=== PATIENT | male | born 1955 | race American Indian/Alaskan Native ===

== ENCOUNTER 2018-01-09 16:56 | Inpatient (IN) | payer OTHER ==
--- NOTE | 2018-01-09 17:22 | Emergency Department Report ---
ED Neuro Deficit HPI - General Chief Complaint: Neuro Symptoms/Deficit Stated Complaint: POSS STROKE Time Seen by Provider: 01/09/18 17:18 Source: patient Mode of arrival: Ambulatory Limitations: No Limitations - History of Present Illness Initial Comments: This is a 62-year-old male with a past medical history significant for previous CVA who was found by his family today in the bathroom with altered mental status. Family states that since Monday which was roughly 2 days ago, the patient has been "acting differently". Family states that he seems to be sleeping more and nodding off more. The family admits that he drinks alcohol daily flavoring hard liquor and beer. He is also a smoker for many years. EMS arrived on scene and suspected left sided upper extremity and lower extremity weakness. The says that his speech seems to be impeded as well. The patient is oriented to place and year but not the month or time. He is oriented to self and he is able to give his own history. No loss of bowel or bladder function noted. -: Gradual, days(s) (2) Location: speech, left arm, left leg Presenting Symptoms: Present: Weak/Paralyzed One Side (left) History of same: Yes Place: home Severity: moderate Quality: weak Improves With: none Worsens With: none Context: gradual onset Associated Symptoms: confusion, weakness. denies: chest pain, cough, diaphoresis, fever/chills, headaches, loss of appetite, nausea/vomiting, shortness of breath - Related Data Allergies/Adverse Reactions: Allergies Allergy/AdvReac Type Severity Reaction Status Date / Time shellfish derived Allergy Hives Verified 01/09/18 17:04 ED Review of Systems ROS: Stated complaint: POSS STROKE Other details as noted in HPI Comment: All other systems reviewed and negative Constitutional: see HPI Eyes: as per HPI ENT: as per HPI Respiratory: see HPI Cardiovascular: as per HPI Endocrine: see HPI Gastrointestinal: as per HPI. denies: abdominal pain, nausea, vomiting Genitourinary: as per HPI Musculoskeletal: as per HPI Skin: as per HPI Neurological: as per HPI Psychiatric: as per HPI Hematological/Lymphatic: as per HPI ED Neuro Physical Exam - General Limitations: No Limitations General appearance: alert, in no apparent distress, appears intoxicated Suspected Stroke: No - Head Head exam: Present: atraumatic - Eye Eye exam: Present: normal appearance, PERRL, EOMI - ENT ENT exam: Present: normal exam - Neck Neck exam: Present: normal inspection - Respiratory Respiratory exam: Present: normal lung sounds bilaterally. Absent: respiratory distress, wheezes, rales, rhonchi - Cardiovascular Cardiovascular Exam: Present: regular rate, normal rhythm, normal heart sounds - GI/Abdominal GI/Abdominal exam: Present: soft, normal bowel sounds. Absent: diminished bowel sounds - Extremities Exam Extremities exam: Present: normal inspection, full ROM (generalized weakness in all extremities), normal capillary refill - Back Exam Back exam: Present: normal inspection - Neurological Exam Neurological exam: Present: alert, CN II-XII intact. Absent: oriented X3 - Skin Skin exam: Present: warm, dry, intact, normal color ED Course Vital Signs 01/09/18 01/09/18 01/09/18 17:02 17:25 17:31 Temperature 98.6 F Pulse Rate 93 H 77 60 Respiratory 12 13 Rate Blood Pressure 197/86 O2 Sat by Pulse 97 88 93 Oximetry 01/09/18 01/09/18 01/09/18 17:40 17:45 18:01 Temperature Pulse Rate 76 77 85 Respiratory 18 12 13 Rate Blood Pressure O2 Sat by Pulse 99 98 97 Oximetry 01/09/18 01/09/18 01/09/18 18:15 18:31 18:45 Temperature Pulse Rate 76 71 67 Respiratory 8 L 13 10 L Rate Blood Pressure O2 Sat by Pulse 95 98 99 Oximetry 01/09/18 01/09/18 01/09/18 19:01 19:15 19:31 Temperature Pulse Rate 68 102 H 82 Respiratory 11 L 11 L 7 L Rate Blood Pressure O2 Sat by Pulse 99 98 97 Oximetry 01/09/18 01/09/18 01/09/18 19:45 20:01 20:15 Temperature Pulse Rate 71 89 93 H Respiratory 6 L 16 17 Rate Blood Pressure 212/107 O2 Sat by Pulse 98 97 93 Oximetry - Reevaluation(s) Reevaluation #1: 01/09/18 21:55 The patient told his that he took some ecstasy. He also has been drinking. It could very well be that the patient is suffering from substance use disorder acutely. At this time there is no evidence of a CVA. I discussed the case with hospitalist. We will go ahead and admit the patient. - Lab Data Result diagrams: 01/09/18 17:20 01/09/18 17:20 Lab Results 01/09/18 01/09/18 01/09/18 Range/Units 17:05 17:20 17:20 WBC 10.4 (4.5-11.0) K/mm3 RBC 4.31 (3.65-5.03) M/mm3 Hgb 13.4 (11.8-15.2) gm/dl Hct 38.9 (35.5-45.6) % MCV 91 (84-94) fl MCH 31 (28-32) pg MCHC 34 (32-34) % RDW 14.3 (13.2-15.2) % Plt Count 254 (140-440) K/mm3 Lymph % (Auto) 11.0 L (13.4-35.0) % [place] % (Auto) 6.6 (0.0-7.3) % Eos % (Auto) 0.7 (0.0-4.3) % Baso % (Auto) 0.8 (0.0-1.8) % Lymph # 1.1 L (1.2-5.4) K/mm3 [place] # 0.7 (0.0-0.8) K/mm3 Eos # 0.1 (0.0-0.4) K/mm3 Baso # 0.1 (0.0-0.1) K/mm3 Seg Neutrophils % 80.9 H (40.0-70.0) % Seg Neutrophils # 8.4 H (1.8-7.7) K/mm3 PT 12.9 (12.2-14.9) Sec. INR 0.93 (0.87-1.13) APTT 28.9 (24.2-36.6) Sec. Thrombin Time (15.1-19.6) Sec. Sodium (137-145) mmol/L Potassium (3.6-5.0) mmol/L Chloride (98-107) mmol/L Carbon Dioxide (22-30) mmol/L Anion Gap mmol/L BUN (9-20) mg/dL Creatinine (0.8-1.5) mg/dL Estimated GFR ml/min BUN/Creatinine Ratio % Glucose (75-100) mg/dL POC Glucose 118 H (70-105) Calcium (8.4-10.2) mg/dL Total Bilirubin (0.1-1.2) mg/dL Direct Bilirubin (0-0.2) mg/dL Indirect Bilirubin mg/dL AST (5-40) units/L ALT (7-56) units/L Alkaline Phosphatase (35-129) units/L Troponin T (0.00-0.029) ng/mL Total Protein (6.3-8.2) g/dL Albumin (3.9-5) g/dL Albumin/Globulin Ratio % Plasma/Serum Alcohol (0-0.07) % 01/09/18 01/09/18 01/09/18 Range/Units 17:20 17:20 17:28 WBC (4.5-11.0) K/mm3 RBC (3.65-5.03) M/mm3 Hgb (11.8-15.2) gm/dl Hct (35.5-45.6) % MCV (84-94) fl MCH (28-32) pg MCHC (32-34) % RDW (13.2-15.2) % Plt Count (140-440) K/mm3 Lymph % (Auto) (13.4-35.0) % [place] % (Auto) (0.0-7.3) % Eos % (Auto) (0.0-4.3) % Baso % (Auto) (0.0-1.8) % Lymph # (1.2-5.4) K/mm3 [place] # (0.0-0.8) K/mm3 Eos # (0.0-0.4) K/mm3 Baso # (0.0-0.1) K/mm3 Seg Neutrophils % (40.0-70.0) % Seg Neutrophils # (1.8-7.7) K/mm3 PT (12.2-14.9) Sec. INR (0.87-1.13) APTT (24.2-36.6) Sec. Thrombin Time 15.1 (15.1-19.6) Sec. Sodium 138 (137-145) mmol/L Potassium 3.2 L (3.6-5.0) mmol/L Chloride 96.1 L (98-107) mmol/L Carbon Dioxide 28 (22-30) mmol/L Anion Gap 17 mmol/L BUN 20 (9-20) mg/dL Creatinine 1.2 (0.8-1.5) mg/dL Estimated GFR > 60 ml/min BUN/Creatinine Ratio 17 % Glucose 141 H (75-100) mg/dL POC Glucose (70-105) Calcium 9.2 (8.4-10.2) mg/dL Total Bilirubin 1.00 (0.1-1.2) mg/dL Direct Bilirubin 0.3 H (0-0.2) mg/dL Indirect Bilirubin 0.7 mg/dL AST 95 H (5-40) units/L ALT 59 H (7-56) units/L Alkaline Phosphatase 91 (35-129) units/L Troponin T < 0.010 (0.00-0.029) ng/mL Total Protein 7.7 (6.3-8.2) g/dL Albumin 4.1 (3.9-5) g/dL Albumin/Globulin Ratio 1.1 % Plasma/Serum Alcohol (0-0.07) % 05/15/18 Range/Units 17:40 WBC (4.5-11.0) K/mm3 RBC (3.65-5.03) M/mm3 Hgb (11.8-15.2) gm/dl Hct (35.5-45.6) % MCV (84-94) fl MCH (28-32) pg MCHC (32-34) % RDW (13.2-15.2) % Plt Count (140-440) K/mm3 Lymph % (Auto) (13.4-35.0) % [place] % (Auto) (0.0-7.3) % Eos % (Auto) (0.0-4.3) % Baso % (Auto) (0.0-1.8) % Lymph # (1.2-5.4) K/mm3 [place] # (0.0-0.8) K/mm3 Eos # (0.0-0.4) K/mm3 Baso # (0.0-0.1) K/mm3 Seg Neutrophils % (40.0-70.0) % Seg Neutrophils # (1.8-7.7) K/mm3 PT (12.2-14.9) Sec. INR (0.87-1.13) APTT (24.2-36.6) Sec. Thrombin Time (15.1-19.6) Sec. Sodium (137-145) mmol/L Potassium (3.6-5.0) mmol/L Chloride (98-107) mmol/L Carbon Dioxide (22-30) mmol/L Anion Gap mmol/L BUN (9-20) mg/dL Creatinine (0.8-1.5) mg/dL Estimated GFR ml/min BUN/Creatinine Ratio % Glucose (75-100) mg/dL POC Glucose (70-105) Calcium (8.4-10.2) mg/dL Total Bilirubin (0.1-1.2) mg/dL Direct Bilirubin (0-0.2) mg/dL Indirect Bilirubin mg/dL AST (5-40) units/L ALT (7-56) units/L Alkaline Phosphatase (35-129) units/L Troponin T (0.00-0.029) ng/mL Total Protein (6.3-8.2) g/dL Albumin (3.9-5) g/dL Albumin/Globulin Ratio % Plasma/Serum Alcohol < 0.01 (0-0.07) % Critical care attestation.: If time is entered above; I have spent that time in minutes in the direct care of this critically ill patient, excluding procedure time. ED Disposition Clinical Impression: Polysubstance abuse Altered mental status Qualifiers: Altered mental status type: unspecified Qualified Code(s): R41.82 - Altered mental status, unspecified Disposition: OP ADMIT IP TO THIS HOSP Is pt being admited?: Yes Does the pt Need Aspirin: No Condition: Stable
[2018-01-09 17:33] LABS: Basophils # (Auto) 0.1 K/mm3 (0.0-0.1); Basophils % (Auto) 0.8 % (0.0-1.8); Eosinophils # (Auto) 0.1 K/mm3 (0.0-0.4); Eosinophils % (Auto) 0.7 % (0.0-4.3); Hematocrit 38.9 % (35.5-45.6); Hemoglobin 13.4 gm/dl (11.8-15.2); Lymphocytes # (Auto) 1.1 K/mm3 (1.2-5.4); Mean Corpuscular HGB Conc 34 % (32-34); Mean Corpuscular Hemoglobin 31 pg (28-32); Mean Corpuscular Volume 91 fl (84-94); Monocytes # (Auto) 0.7 K/mm3 (0.0-0.8); Monocytes % (Auto) 6.6 % (0.0-7.3); Platelet Count 254 K/mm3 (140-440); Red Blood Count 4.31 M/mm3 (3.65-5.03); Red Cell Distribution Width 14.3 % (13.2-15.2)
[2018-01-09 17:41] LABS: INR 0.93 (0.87-1.13)
[2018-01-09 17:42] LABS: Partial Thromboplastin Time 28.9 Sec. (24.2-36.6)
--- NOTE | 2018-01-09 17:49 | Cat Scan Report ---
FINAL REPORT PROCEDURE: CT head without contrast. TECHNIQUE: Computerized tomography of the head was performed without contrast material. HISTORY: neuro deficits < 6hrs or sx present upon awakening COMPARISON: No prior studies are available for comparison. FINDINGS: The ventricles are normal in size. There are some focal areas of diminished attenuation near the right sylvian fissure. These are located laterally in the right frontal lobe and posteriorly in the right frontal lobe. There is also some diminished attenuation in the anterior portion of the right parietal lobe. These areas are easily seen and show no mass-effect. They are consistent with areas of encephalomalacia. They are likely secondary to previous infarcts. The remainder of the miller matter and white matter appears normal. There are no mass lesions. There is no intracranial hemorrhage. There are no definite signs of acute infarction. An MRI scan with diffusion-weighted imaging is the most sensitive means of detecting an early stroke. The calvarium appears intact. The mastoid air cells and visualized paranasal sinuses are clear. IMPRESSION: No evidence of acute disease. Probable chronic right-sided ischemic changes as described.
[2018-01-09 17:56] LABS: BUN/Creatinine Ratio 17; Blood Urea Nitrogen 20 mg/dL (9-20); Calcium 9.2 mg/dL (8.4-10.2); Hemolysis Index 63
[2018-01-09 18:30] LABS: Albumin 4.1 g/dL (3.9-5); Bilirubin,Direct 0.3 mg/dL (0-0.2)
[2018-01-09] MEDS ORDERED: VITAMIN B-1 100 MG, FOLVITE 1 MG, INFUVITE 10 ML in NACL 0.9% 1000 ML 1,000 ML IV ONE (22:21)
[2018-01-09] MEDS ORDERED: TYLENOL PO PRN (22:22)
[2018-01-09] MEDS ORDERED: APRESOLINE IV PRN (22:23)
[2018-01-10 00:10] LABS: Bilirubin,Urine NEG (Negative); Blood,Urine NEG (Negative); Color,Urine Amber (Yellow); Hyaline Casts,Urine 61 /LPF; Mucus,Urine FEW /HPF; Urobilinogen,Urine < 2.0 mg/dL (<2.0)
[2018-01-10 00:12] LABS: WBC,Urine > 182.0 /HPF (0.0-6.0)
[2018-01-10 00:13] LABS: Amphetamine Screen,Urine PRESUMPTIVE NEGATIVE; Benzodiazepines Screen,Urine PRESUMPTIVE NEGATIVE; Cannabinoid Screen,Urine PRESUMPTIVE NEGATIVE; Methadone Screen,Urine PRESUMPTIVE NEGATIVE
[2018-01-10 00:25] LABS: Cocaine Screen,Urine PRESUMPTIVE POSITIVE; Opiate Screen,Urine PRESUMPTIVE POSITIVE
[2018-01-10 07:32] LABS: Creatine Kinase MB 20.4 ng/mL (0.0-4.0)
--- NOTE | 2018-01-10 07:56 | Progress Note ---
Assessment and Plan Assessment and plan: 62 year old male with past medical history significant for CVA, hypertension presented to the emergency department with complaints of left sided weakness. Patient does not feeling well for the last 2 days. Patient has been using drugs and alcohol Left-sided weakness, likely due to TIA or substance abuse - Weakness resolved - CT head was done and negative for acute findings, MRI head and carotid Doppler non revealing - Patient said somebody gave him Di, UDS is positive for cocaine and Opiates - Neurology consult appreciated and waiting for Echo Hypertensive emergency - We'll start BP medication - Monitor closely DVT prophylaxis Disposition - Continue inpatient History Interval history: No nursing issues over night, Blood pressure is well controlled. Patient is complaining back pain, patient fall during the incident. Hospitalist Physical - Physical exam Narrative exam: Not in cardiopulmonary distress. The patient appeared well nourished and normally developed. Vital signs as documented. Head exam is unremarkable. No scleral icterus . Neck is without jugular venous distension, thyromegaly, or carotid bruits. Lungs are clear to auscultation. Cardiac exam reveals regular rate and Rhythm. Abdominal exam reveals normal bowel sounds, no masses, no organomegaly and no aortic enlargement. Extremities are nonedematous and both femoral and pedal pulses are normal. 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 No focal weakness. - Constitutional Vitals: Temp Pulse Resp BP Pulse Ox 99.1 F 84 18 166/76 94 01/10/18 04:07 01/10/18 06:00 01/10/18 06:00 01/10/18 04:07 01/10/18 04:07 Results - Labs CBC & Chem 7: 01/09/18 17:20 01/09/18 17:20 Labs: Laboratory Last Values WBC 10.4 K/mm3 (4.5-11.0) 01/09/18 17:20 RBC 4.31 M/mm3 (3.65-5.03) 01/09/18 17:20 Hgb 13.4 gm/dl (11.8-15.2) 01/09/18 17:20 Hct 38.9 % (35.5-45.6) 01/09/18 17:20 MCV 91 fl (84-94) 01/09/18 17:20 MCH 31 pg (28-32) 01/09/18 17:20 MCHC 34 % (32-34) 01/09/18 17:20 RDW 14.3 % (13.2-15.2) 01/09/18 17:20 Plt Count 254 K/mm3 (140-440) 01/09/18 17:20 Lymph % (Auto) 11.0 % (13.4-35.0) L 01/09/18 17:20 [place] % (Auto) 6.6 % (0.0-7.3) 01/09/18 17:20 Eos % (Auto) 0.7 % (0.0-4.3) 01/09/18 17:20 Baso % (Auto) 0.8 % (0.0-1.8) 01/09/18 17:20 Lymph # 1.1 K/mm3 (1.2-5.4) L 01/09/18 17:20 Nolan # 0.7 K/mm3 (0.0-0.8) 01/09/18 17:20 Eos # 0.1 K/mm3 (0.0-0.4) 01/09/18 17:20 Baso # 0.1 K/mm3 (0.0-0.1) 01/09/18 17:20 Seg Neutrophils % 80.9 % (40.0-70.0) H 01/09/18 17:20 Seg Neutrophils # 8.4 K/mm3 (1.8-7.7) H 01/09/18 17:20 PT 12.9 Sec. (12.2-14.9) 01/09/18 17:20 INR 0.93 (0.87-1.13) 01/09/18 17:20 APTT 28.9 Sec. (24.2-36.6) 01/09/18 17:20 Thrombin Time 15.1 Sec. (15.1-19.6) 01/09/18 17:20 Sodium 138 mmol/L (137-145) 01/09/18 17:20 Potassium 3.2 mmol/L (3.6-5.0) L 01/09/18 17:20 Chloride 96.1 mmol/L (98-107) L 01/09/18 17:20 Carbon Dioxide 28 mmol/L (22-30) 01/09/18 17:20 Anion Gap 17 mmol/L 01/09/18 17:20 BUN 20 mg/dL (9-20) 01/09/18 17:20 Creatinine 1.2 mg/dL (0.8-1.5) 01/09/18 17:20 Estimated GFR > 60 ml/min 01/09/18 17:20 BUN/Creatinine Ratio 17 % 01/09/18 17:20 Glucose 141 mg/dL (75-100) H 01/09/18 17:20 POC Glucose 118 (70-105) H 01/10/18 06:07 Calcium 9.2 mg/dL (8.4-10.2) 01/09/18 17:20 Total Bilirubin 1.00 mg/dL (0.1-1.2) 01/09/18 17:28 Direct Bilirubin 0.3 mg/dL (0-0.2) H 01/09/18 17:28 Indirect Bilirubin 0.7 mg/dL 01/09/18 17:28 AST 95 units/L (5-40) H 01/09/18 17:28 ALT 59 units/L (7-56) H 01/09/18 17:28 Alkaline Phosphatase 91 units/L (35-129) 01/09/18 17:28 Total Creatine Kinase 1951 units/L (55-170) H 01/10/18 06:57 CK-MB (CK-2) 20.4 ng/mL (0.0-4.0) H 01/10/18 06:57 CK-MB (CK-2) Rel Index 1.0 (0-4) 01/10/18 06:57 Troponin T < 0.010 ng/mL (0.00-0.029) 01/10/18 06:57 Total Protein 7.7 g/dL (6.3-8.2) 01/09/18 17:28 Albumin 4.1 g/dL (3.9-5) 01/09/18 17:28 Albumin/Globulin Ratio 1.1 % 01/09/18 17:28 Urine Color [place]cell[place] (Yellow) 01/09/18 Unknown Urine Turbidity Clear (Clear) 01/09/18 Unknown Urine pH 5.0 (5.0-7.0) 01/09/18 Unknown Ur Specific [place] 1.017 (1.003-1.030) 01/09/18 Unknown Urine Protein 30 mg/dl mg/dL (Negative) 01/09/18 Unknown Urine Glucose (UA) Neg mg/dL (Negative) 01/09/18 Unknown Urine Ketones Neg mg/dL (Negative) 01/09/18 Unknown Urine Blood Neg (Negative) 01/09/18 Unknown Urine Nitrite Neg (Negative) 01/09/18 Unknown Urine Bilirubin Neg (Negative) 01/09/18 Unknown Urine Urobilinogen < 2.0 mg/dL (<2.0) 01/09/18 Unknown Ur Leukocyte Esterase Lg (Negative) 01/09/18 Unknown Urine WBC (Auto) > 182.0 /HPF (0.0-6.0) H 01/09/18 Unknown Urine RBC (Auto) 10.0 /HPF (0.0-6.0) 01/09/18 Unknown U Epithel Cells (Auto) 1.0 /HPF (0-13.0) 01/09/18 Unknown Urine WBC Clumps 2+ /HPF 01/09/18 Unknown Hyaline Casts 61 /LPF 01/09/18 Unknown Urine Mucus Few /HPF 01/09/18 Unknown Urine Opiates Screen Presumptive positive 01/09/18 Unknown Urine Methadone Screen Presumptive negative 01/09/18 Unknown Ur Barbiturates Screen Presumptive negative 01/09/18 Unknown Ur Phencyclidine Scrn Presumptive negative 01/09/18 Unknown Ur Amphetamines Screen Presumptive negative 01/09/18 Unknown U Benzodiazepines Scrn Presumptive negative 01/09/18 Unknown Urine Cocaine Screen Presumptive positive 01/09/18 Unknown U Marijuana (THC) Screen Presumptive negative 01/09/18 Unknown Drugs of Abuse Note Disclamer 01/09/18 Unknown Plasma/Serum Alcohol < 0.01 % (0-0.07) 01/09/18 17:40
--- NOTE | 2018-01-10 09:02 | History and Physical Report ---
CHIEF COMPLAINT: Change in mental status. HISTORY OF PRESENT ILLNESS: The patient is a 62-year-old male who was noted by family to be having change in mental is going on for about 2-3 days and also the family noted that the patient has been sleeping more and also has some difficulty with speech. Also, the patient was noted by EMS to have left upper and left lower weakness when they got there to see patient. Family said that the patient drinks alcohol regularly and smokes cigarettes for many years. The patient at this time of evaluation said that he also had some illicit drug use which he sniffed prior to the symptom, seen and evaluated in the Emergency Room. PAST MEDICAL HISTORY: Pertinent for CVA. PAST SURGICAL HISTORY: Unremarkable. FAMILY HISTORY: Noncontributory. SOCIAL HISTORY: The patient drinks alcohol, smokes cigarettes, and uses illicit drugs. MEDICATIONS: The patient's home medications are not known. ALLERGIES: The patient is allergic to SHELLFISH. REVIEW OF SYSTEMS: CONSTITUTIONAL: There is no fever, no chills, no diaphoresis. HEENT: There is no headache or sore throat. CARDIOVASCULAR SYSTEM: There is no chest pain or orthopnea. RESPIRATORY SYSTEM: There is no shortness of breath or cough. GASTROINTESTINAL SYSTEM: There is no nausea, no vomiting, no abdominal pain, diarrhea, or constipation. NEUROLOGIC SYSTEM: Change in mental status noted. Speech impairment noted. Left upper and lower leg weakness noted. No numbness, no dizziness. RESPIRATORY SYSTEM: There is no joint pain or swelling. DERMATOLOGICAL SYSTEM: There is no skin rash or itching. GENITOURINARY SYSTEM: There is no dysuria, hematuria, or flank pain. Rest of system review is normal. PHYSICAL EXAMINATION: GENERAL: At the time of exam, the patient was found to be alert, oriented x 3, and not in acute distress. VITAL SIGNS: Shows a temperature of 98 degrees Fahrenheit, pulse of 73, respirations 10, blood pressure 156/78, O2 sat of 94% on room air. HEENT: Showed pupils to be equal, round, reactive to light and accommodation. Extraocular muscles are intact. NECK: Supple with no JVD or carotid bruit. CARDIOVASCULAR SYSTEM: Showed normal first and second heart sounds. No gallops or murmurs. RESPIRATORY SYSTEM: Show good air entry on both sides of the lungs, no abnormal breath sounds. GASTROINTESTINAL SYSTEM: Show abdomen to be full, soft, nontender with no organomegaly or rigidity. NEUROLOGICAL: Shows good muscle strength of 6/6 in both upper and lower limbs, with no focal deficit elicited at this time. MUSCULOSKELETAL SYSTEM: Show no joint swelling or tenderness. DERMATOLOGICAL SYSTEM: Show no skin rash. GENITOURINARY SYSTEM: Showing no costovertebral angle tenderness. PERTINENT LABORATORY AND IMAGING STUDIES: The patient had a CT of the head without contrast done that shows no evidence of acute disease. Radiologist said that there is probable chronic right-sided ischemic changes as described. The patient's lab test shows CBC with normal hemoglobin, normal hematocrit, and normal white count with CBC differential showing elevated segmented neutrophil of 80.9%. The patient's coagulation studies came back unremarkable with the patient's potassium level in the chemistry shows a low potassium level of 3.2. The patient's sodium level was normal with chloride level showing low level of 96.1. The patient's liver transaminases show a high value with AST of 95 and ALT of 59 consistent with alcohol abuse and the patient CPK show a high value of 1885 and CK-MB high with a value of 30.0 and normal troponins as well as normal CK percentage. The patient's urinalysis show high WBC of 182 and high leukocyte esterase level. The patient's urine drug screen is positive for cocaine. DIAGNOSES: 1. Altered mental status. 2. Polysubstance abuse. 3. Hypokalemia. 4. Urinary tract infection. PLAN: The patient will be admitted to telemetry and will have Neurology consult with today. We will have MRI of the brain without contrast this morning as well as bilateral carotid Doppler this morning. The patient will be on IV normal saline mixed with thiamine, folic 3, and magnesium to make up the banana bag to be given one time and the patient will be on IV hydralazine 10 mg every 4 hours for systolic blood pressure greater than 160 mmHg. The patient will be on IV ceftriaxone 1 gram daily for treatment of UTI and will have potassium replacement through IV KCl 10 mEq in 100 mL of saline x 4 dosages. The patient will be on Tylenol 650 mg by mouth every 4 hour for fever and headache and will be on oxygen by nasal cannula 2 liters per minute. The patient's home medications will be reconciled and applied accordingly when they have known. JOB# [id number] OCN/NTS
[2018-01-10] MEDS: KCL 10MEQ/100ML 10 MEQ/100 ML BAG IV SCH ×4 (09:55→19:36)
[2018-01-10] MEDS: cefTRIAXone 1 GM in NACL 0.9% 20 ML IV SCH (09:57)
[2018-01-10] MEDS ORDERED: ROCEPHIN/NS 1 GM/50 ML 1 GM/50 ML BAG IV SCH (10:00)
--- NOTE | 2018-01-10 14:27 | Magnetic Resonance Report ---
MRI BRAIN WITHOUT CONTRAST: 01/09/18 22:10:00 CLINICAL: Altered mental status and left-sided weakness. COMPARISON: CT head 01/09/18 TECHNIQUE: Axial diffusion, T1, T2, FLAIR, gradient echo T2*, and sagittal T1 sequences on a 1.5 Doris magnet. FINDINGS: The ventricles are normal size. Mild enlargement of sulci and greater enlargement of sulci in the posterior right parietal lobe along with right posterior parietal encephalomalacia. This is accompanied by pronounced gliosis of the right occipital lobe and to a lesser degree gliosis of the left occipital lobe. These areas are hyperintense on T2 and FLAIR. In addition, moderate bilateral multifocal frontal lobe and temporal lobe white matter hyperintensities on FLAIR and T2. No evidence of acute or subacute hemorrhage. A single right parasagittal parietal cortical micro-bleed. No mass or mass effect. No edema or extra-axial collection. Normal pituitary and optic chiasm. The brainstem and cerebellum are normal. Intact vascular flow voids. Mild bilateral ethmoid sinusitis. The orbits, and soft tissues are normal. Normal calvarium and skull base. IMPRESSION: 1. No evidence of acute/subacute infarct or hemorrhage. 2. Chronic right parietal lobe encephalomalacia and bilateral occipital lobe gliosis. 3. Moderate multifocal bilateral white matter hyperintensities on FLAIR and T2. 4. Single right parietal lobe chronic microbleed.
--- NOTE | 2018-01-10 16:09 | Magnetic Resonance Report ---
FINAL REPORT EXAM: MR MRA HEAD WO CON HISTORY: possible stroke TECHNIQUE: Multiplanar multisequence brain MR imaging without IV contrast. PRIORS: Head CT 01/09/2018 FINDINGS: [employer] windows again demonstrate partly imaged nonspecific asymmetric slight volume loss and likely encephalomalacia in the right parietal lobe adjacent to the asymmetrically more prominent right sylvian fissure. 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 Developmental variation with dominant left vertebral artery. The included carotid and vertebral arteries reveal no significant abnormality. The visualized components of the [place] and its major branches are without pathology to include the anterior, middle, and posterior cerebral arteries. Vessel caliber is without stenosis, occlusion, vascular malformation, or aneurysm. IMPRESSION: [employer] windows again demonstrate asymmetric slight volume loss and partly imaged likely encephalomalacia in the right parietal lobe adjacent to the asymmetrically more prominent right sylvian fissure. Findings appear chronic but brain MRI may be useful to determine acuity No MRA evidence of significant brain vascular pathology
[2018-01-10] MEDS ORDERED: PLAVIX PO ONE (18:00)
[2018-01-10] MEDS: ZESTRIL PO SCH (19:36)
[2018-01-10] MEDS: NORVASC PO SCH (19:36)
[2018-01-10] MEDS: HABITROL TD SCH (19:36)
--- NOTE | 2018-01-10 19:42 | Consultation ---
History of Present Illness Consult date: 01/10/18 Requesting physician: NEHAL SAMAYOA Reason for Consult: weakness left side Chief complaint: TIA History of present illness: This 62-year-old right-handed -[place]ian male says he took something he was told was a "Di" on Monday but urine tested positive for cocaine. Yesterday he noted vertigo and weakness on his left side with the vertigo causing him to pass out at 2 or 3 in the afternoon waking up at 7 PM and then came to the hospital. He has also had some right lower back pain since this started. He had numbness of the left arm and leg at the time of the weakness but those symptoms cleared up by 2 this morning. He no longer has vertigo. He has been taking 325 mg aspirin at home and 40 mg pravastatin. 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 denies: prescription drug abuse, IV drug use (20 years ago used to take heroin and cocaine nasally) Family history: diabetes (both sides of the family), hypertension (both sides of the family), stroke (maternal uncles), other (no history of epilepsy) Medications and Allergies Allergies Allergy/AdvReac Type Severity Reaction Status Date / Time shellfish derived Allergy Hives Verified 01/09/18 17:04 Home Medications Medication Instructions Recorded Confirmed Last Taken Type Aspirin 325 PO QDAY 01/10/18 Unknown History Pravastatin 40 HS 01/10/18 Unknown History Active Meds: Active Medications Acetaminophen (Tylenol) 650 mg PO Q4H PRN PRN Reason: Pain, Mild (1-3) Last Admin: 01/10/18 09:58 Dose: 650 mg Amlodipine Besylate (Norvasc) 10 mg PO QDAY JEMMA Clopidogrel Bisulfate (Plavix) 75 mg PO QDAY JEMMA Cyclobenzaprine HCl (Flexeril) 10 mg PO Q8H PRN PRN Reason: Muscle Spasm Hydralazine HCl (Apresoline) 10 mg IV Q4H PRN PRN Reason: Blood Pressure Last Admin: 01/10/18 09:57 Dose: 10 mg Ceftriaxone Sodium 1 gm/ (Sodium Chloride) 20 mls @ 2 mls/min IV Q24HR JEMMA Last Admin: 01/10/18 09:57 Dose: 2 mls/min Lisinopril (Zestril) 20 mg PO QDAY JEMMA Nicotine (Habitrol) 21 mg TD QDAY JEMMA Oxycodone/Acetaminophen (Percocet 5/325) 2 tab PO Q8H PRN PRN Reason: Pain, Moderate (4-6) Pravastatin Sodium (Pravachol) 40 mg PO QHS JEMMA Review of Systems All systems: negative (no headaches or dizziness prior to this episode, some snoring slightly according to his but no pauses mentioned, after work for 9220 minutes not dozing off other times and was not sleepy driving in the past though not driving currently.) Physical Examination - Vital Signs Vital Signs: Vital Signs Temp Pulse BP Pulse Ox 98.6 F 93 H 197/86 97 01/09/18 17:02 01/09/18 17:02 01/09/18 17:02 01/09/18 17:02 - Physical Exam Narrative exam: General Appearance: well developed well nourished (per BMI) early 60s - [place] male in [facility]. HEENT: atraumatic, normocephalic; no bruits, 2+ Vaughn without soreness or induration or enlargement, sclerae nonicteric. Oropharynx pink and moist. Neck: supple, no bruits. Heart: no murmur or extra sounds. Extremities: no clubbing, cyanosis or edema. 2+ dorsalis pedis pulses bilaterally. Neurologic Exam: Mental Status: Awake, alert, oriented X 3, speech is clear, names pen and ball of pen and glasses and lenses, and abstracts well. 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 Cranial Nerves: murphy full, no papilledema, SVPs present, PERRLA, EOMs full without nystagmus or diplopia, facial sensation intact to pinprick and light touch, no facial weakness, Keating is midline, gags are positive, shoulder shrug is 5 X 2, tongue protrudes midline. Cerebellar: finger to nose and heel to ellsworth are normal. Sensory: intact to light touch, pinprick, and vibrations. Double simultaneous stimulation is intact. Motor Exam Upper Extremities: no drift or pronation, Pako intact. Switchboard Mechanic are 5 X 2, tone is normal. No atrophy or fasciculations are noted visually. Motor Exam Lower Extremities: Can't lift right leg secondary to pain in his back but lifts left leg well, quadriceps are 5 despite the pain, anterior tibials and gastrocnemius are 5- X 2. Pako intact. Tone is normal. No atrophy or fasciculations are noted visually. Reflexes: Palmomental and snout are negative but jaw jerk is positive. Triceps are 2, biceps and brachioradialis are 1 bilaterally. Jasper's is negative bilaterally. Knee jerks are 2 and ankle jerks are 2+ bilaterally without clonus. Toes are downgoing bilaterally to Babinski testing. Results - Laboratory Findings CBC and BMP: 01/09/18 17:20 01/09/18 17:20 Abnormal Lab Findings: Abnormal Labs 01/09/18 01/09/18 01/09/18 17:05 17:20 17:20 Lymph % (Auto) 11.0 L Lymph # 1.1 L Seg Neutrophils % 80.9 H Seg Neutrophils # 8.4 H Potassium 3.2 L Chloride 96.1 L Glucose 141 H POC Glucose 118 H Direct Bilirubin AST ALT Total Creatine Kinase CK-MB (CK-2) Urine WBC (Auto) 01/09/18 01/09/18 01/10/18 17:28 Unknown 00:14 Lymph % (Auto) Lymph # Seg Neutrophils % Seg Neutrophils # Potassium Chloride Glucose POC Glucose Direct Bilirubin 0.3 H AST 95 H ALT 59 H Total Creatine Kinase 1885 H CK-MB (CK-2) 30.0 H Urine WBC (Auto) > 182.0 H 01/10/18 01/10/18 06:07 06:57 Lymph % (Auto) Lymph # Seg Neutrophils % Seg Neutrophils # Potassium Chloride Glucose POC Glucose 118 H Direct Bilirubin AST ALT Total Creatine Kinase 1951 H CK-MB (CK-2) 20.4 H Urine WBC (Auto) Assessment and Plan Impression: 1. TIA 2. Hypertension 3. Hyperlipidemia Plan: 1. Await echocardiogram with bubbles and Valsalva which I have ordered. Call me if PFO with right heart changes. 2. Changed him from aspirin (since he failed it) to Plavix though I told him this will not prevent strokes if he continues to smoke and to drink more than 2 drinks per day. Ordered 21 mg nicotine patch. I told him sometimes it helps to add nicotine gum for additional craving while on the patch. 3. Needs 30 day event monitor for PAF as outpatient. 4. No EEG needed unless he has recurrent episodes of weakness without MRI changes. 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 45 min spent with this patient including review of 100s of MRI images, some of which I showed him in terms of his old strokes. Thank you for an interesting consultation on this early 60s man.
[2018-01-10] MEDS: PERCOCET 5/325 PO PRN (21:08)
[2018-01-10] MEDS: PRAVACHOL PO SCH (21:09)
[2018-01-10] MEDS: FLEXERIL PO PRN (21:11)
[2018-01-11 07:54] LABS: Chol/HDL Ratio 2.22 %
[2018-01-11] MEDS: PLAVIX PO SCH (12:45)
[2018-01-11] MEDS: HABITROL TD SCH (12:45)
[2018-01-11] MEDS: cefTRIAXone 1 GM in NACL 0.9% 20 ML IV SCH (12:45)
[2018-01-11] MEDS: PERCOCET 5/325 PO PRN ×2 (12:46→22:06)
[2018-01-11] MEDS: FLEXERIL PO PRN ×2 (12:46→22:06)
[2018-01-11] MEDS: NORVASC PO SCH (12:47)
[2018-01-11] MEDS: ZESTRIL PO SCH (12:47)
--- NOTE | 2018-01-11 16:31 | Progress Note ---
Assessment and Plan Assessment and plan: 62 year old male with past medical history significant for CVA, hypertension presented to the emergency department with complaints of left sided weakness. Patient does not feeling well for the last 2 days. Patient has been using drugs and alcohol Left-sided weakness, likely due to TIA or substance abuse - Weakness resolved - CT head was done and negative for acute findings, MRI head and carotid Doppler non revealing - Patient said somebody gave him Di, UDS is positive for cocaine and Opiates - Neurology consult appreciated Hypertensive emergency - We'll start BP medication - Monitor closely Patient has accelerated junctional rhythm - Cardiology consulted - Echo showed diastolic dysfunction DVT prophylaxis Disposition -Possible discharge after cardiology evaluation History Interval history: No nursing issues over night, Blood pressure is well controlled. Patient is complaining back pain, patient fall during the incident. Hospitalist Physical - Physical exam Narrative exam: Not in cardiopulmonary distress. The patient appeared well nourished and normally developed. Vital signs as documented. Head exam is unremarkable. No scleral icterus . Neck is without jugular venous distension, thyromegaly, or carotid bruits. Lungs are clear to auscultation. Cardiac exam reveals regular rate and Rhythm. Abdominal exam reveals normal bowel sounds, no masses, no organomegaly and no aortic enlargement. Extremities are nonedematous and both femoral and pedal pulses are normal. CASE COORDINATOR: Alert and oriented 3. No focal weakness. - Constitutional Vitals: Temp Pulse Resp BP Pulse Ox 99.0 F 80 20 144/75 97 01/11/18 07:28 01/11/18 07:29 01/11/18 07:28 01/11/18 07:28 01/11/18 07:29 Results - Labs CBC & Chem 7: 01/09/18 17:20 01/09/18 17:20 Labs: Laboratory Last Values WBC 10.4 K/mm3 (4.5-11.0) 01/09/18 17:20 RBC 4.31 M/mm3 (3.65-5.03) 01/09/18 17:20 Hgb 13.4 gm/dl (11.8-15.2) 01/09/18 17:20 Hct 38.9 % (35.5-45.6) 01/09/18 17:20 MCV 91 fl (84-94) 01/09/18 17:20 MCH 31 pg (28-32) 01/09/18 17:20 MCHC 34 % (32-34) 01/09/18 17:20 RDW 14.3 % (13.2-15.2) 01/09/18 17:20 Plt Count 254 K/mm3 (140-440) 01/09/18 17:20 Lymph % (Auto) 11.0 % (13.4-35.0) L 01/09/18 17:20 [place] % (Auto) 6.6 % (0.0-7.3) 01/09/18 17:20 Eos % (Auto) 0.7 % (0.0-4.3) 01/09/18 17:20 Baso % (Auto) 0.8 % (0.0-1.8) 01/09/18 17:20 Lymph # 1.1 K/mm3 (1.2-5.4) L 01/09/18 17:20 [place] # 0.7 K/mm3 (0.0-0.8) 01/09/18 17:20 Eos # 0.1 K/mm3 (0.0-0.4) 01/09/18 17:20 Baso # 0.1 K/mm3 (0.0-0.1) 01/09/18 17:20 Seg Neutrophils % 80.9 % (40.0-70.0) H 01/09/18 17:20 Seg Neutrophils # 8.4 K/mm3 (1.8-7.7) H 01/09/18 17:20 PT 12.9 Sec. (12.2-14.9) 01/09/18 17:20 INR 0.93 (0.87-1.13) 01/09/18 17:20 APTT 28.9 Sec. (24.2-36.6) 01/09/18 17:20 Thrombin Time 15.1 Sec. (15.1-19.6) 01/09/18 17:20 Sodium 138 mmol/L (137-145) 01/09/18 17:20 Potassium 3.2 mmol/L (3.6-5.0) L 01/09/18 17:20 Chloride 96.1 mmol/L (98-107) L 01/09/18 17:20 Carbon Dioxide 28 mmol/L (22-30) 05/15/18 17:20 Anion Gap 17 mmol/L 01/09/18 17:20 BUN 20 mg/dL (9-20) 01/09/18 17:20 Creatinine 1.2 mg/dL (0.8-1.5) 01/09/18 17:20 Estimated GFR > 60 ml/min 01/09/18 17:20 BUN/Creatinine Ratio 17 % 01/09/18 17:20 Glucose 141 mg/dL (75-100) H 01/09/18 17:20 POC Glucose 118 (70-105) H 01/10/18 06:07 Calcium 9.2 mg/dL (8.4-10.2) 01/09/18 17:20 Total Bilirubin 1.00 mg/dL (0.1-1.2) 01/09/18 17:28 Direct Bilirubin 0.3 mg/dL (0-0.2) H 01/09/18 17:28 Indirect Bilirubin 0.7 mg/dL 01/09/18 17:28 AST 95 units/L (5-40) H 01/09/18 17:28 ALT 59 units/L (7-56) H 01/09/18 17:28 Alkaline Phosphatase 91 units/L (35-129) 01/09/18 17:28 Total Creatine Kinase 1951 units/L (55-170) H 01/10/18 06:57 CK-MB (CK-2) 20.4 ng/mL (0.0-4.0) H 01/10/18 06:57 CK-MB (CK-2) Rel Index 1.0 (0-4) 01/10/18 06:57 Troponin T < 0.010 ng/mL (0.00-0.029) 01/10/18 06:57 Total Protein 7.7 g/dL (6.3-8.2) 01/09/18 17:28 Albumin 4.1 g/dL (3.9-5) 01/09/18 17:28 Albumin/Globulin Ratio 1.1 % 01/09/18 17:28 Triglycerides 91 mg/dL (2-149) 01/11/18 05:40 Cholesterol 160 mg/dL (50-199) 01/11/18 05:40 LDL Cholesterol Direct 89 mg/dL (50-130) 01/11/18 05:40 HDL Cholesterol 72 mg/dL (40-59) H 01/11/18 05:40 Cholesterol/HDL Ratio 2.22 % 01/11/18 05:40 Urine Color Marcella (Yellow) 01/09/18 Unknown Urine Turbidity Clear (Clear) 01/09/18 Unknown Urine pH 5.0 (5.0-7.0) 01/09/18 Unknown Ur Specific [place] 1.017 (1.003-1.030) 01/09/18 Unknown Urine Protein 30 mg/dl mg/dL (Negative) 01/09/18 Unknown Urine Glucose (UA) Neg mg/dL (Negative) 01/09/18 Unknown Urine Ketones Neg mg/dL (Negative) 01/09/18 Unknown Urine Blood Neg (Negative) 01/09/18 Unknown Urine Nitrite Neg (Negative) 01/09/18 Unknown Urine Bilirubin Neg (Negative) 01/09/18 Unknown Urine Urobilinogen < 2.0 mg/dL (<2.0) 01/09/18 Unknown Ur Leukocyte Esterase Lg (Negative) 01/09/18 Unknown Urine WBC (Auto) > 182.0 /HPF (0.0-6.0) H 01/09/18 Unknown Urine RBC (Auto) 10.0 /HPF (0.0-6.0) 01/09/18 Unknown U Epithel Cells (Auto) 1.0 /HPF (0-13.0) 01/09/18 Unknown Urine WBC Clumps 2+ /HPF 01/09/18 Unknown Hyaline Casts 61 /LPF 01/09/18 Unknown Urine Mucus Few /HPF 01/09/18 Unknown Urine Opiates Screen Presumptive positive 01/09/18 Unknown Urine Methadone Screen Presumptive negative 01/09/18 Unknown Ur Barbiturates Screen Presumptive negative 01/09/18 Unknown Ur Phencyclidine Scrn Presumptive negative 01/09/18 Unknown Ur Amphetamines Screen Presumptive negative 01/09/18 Unknown U Benzodiazepines Scrn Presumptive negative 01/09/18 Unknown Urine Cocaine Screen Presumptive positive 01/09/18 Unknown U Marijuana (THC) Screen Presumptive negative 01/09/18 Unknown Drugs of Abuse Note Disclamer 01/09/18 Unknown Plasma/Serum Alcohol < 0.01 % (0-0.07) 01/09/18 17:40
[2018-01-11] MEDS ORDERED: FLEET PR PRN (20:04)
[2018-01-11] MEDS: PRAVACHOL PO SCH (22:05)
[2018-01-11] MEDS: SENOKOT S PO SCH (22:05)
[2018-01-12 07:28] LABS: Basophils % (Auto) 0.4 % (0.0-1.8); Eosinophils # (Auto) 0.4 K/mm3 (0.0-0.4); Hemoglobin 11.8 gm/dl (11.8-15.2); Lymphocytes # (Auto) 1.1 K/mm3 (1.2-5.4); Lymphocytes % (Auto) 22.8 % (13.4-35.0); Mean Corpuscular HGB Conc 34 % (32-34); Mean Corpuscular Hemoglobin 31 pg (28-32); Mean Corpuscular Volume 91 fl (84-94); Monocytes # (Auto) 0.5 K/mm3 (0.0-0.8); Monocytes % (Auto) 9.7 % (0.0-7.3); Platelet Count 194 K/mm3 (140-440); Red Blood Count 3.85 M/mm3 (3.65-5.03); Red Cell Distribution Width 14.2 % (13.2-15.2)
[2018-01-12 07:49] LABS: BUN/Creatinine Ratio 15; Blood Urea Nitrogen 9 mg/dL (9-20); Calcium 8.6 mg/dL (8.4-10.2); Hemolysis Index 3
--- NOTE | 2018-01-12 07:58 | Discharge Summary ---
Providers - Providers Date of Admission: 01/09/18 22:10 Attending physician: NEHAL SAMAYOA MD 01/10/18 06:18 Consult to Physician [CONS] Routine Comment: Consulting Provider: ISAEL CAMPOS Physician Instructions: Reason For Exam: ALTERED MENTAL STATUS WITH LEFT SIDED WEAKNESS 01/11/18 16:04 Consult to Cardiology [CONS] Routine Consulting Provider: LATOSHA ROBLES Reason For Exam: accelerated junctional rhythm on the monitor Primary care physician: SUPERVISOR [employer]ATCHERY Hospitalization Reason for admission: TIA, polysubstance abuse Condition: Stable Pertinent studies: CT, MRI head normal Carotid Doppler and Electrocardiogram normal Disposition: DC-01 TO HOME OR SELFCARE Time spent for discharge: 31 minutes - Discharge Diagnoses (1) TIA (transient ischemic attack) Status: Acute (2) Altered mental status Status: Acute Qualifiers: Altered mental status type: unspecified Qualified Code(s): R41.82 - Altered mental status, unspecified (3) Polysubstance abuse Status: Acute Core Measure Documentation - Palliative Care Palliative Care/ Comfort Measures: Not Applicable - Core Measures Any of the following diagnoses?: none Exam - Physical Exam Narrative exam: Not in cardiopulmonary distress. The patient appeared well nourished and normally developed. Vital signs as documented. Head exam is unremarkable. No scleral icterus . Neck is without jugular venous distension, thyromegaly, or carotid bruits. Lungs are clear to auscultation. Cardiac exam reveals regular rate and Rhythm. Abdominal exam reveals normal bowel sounds, no masses, no organomegaly and no aortic enlargement. Extremities are nonedematous and both femoral and pedal pulses are normal. LIDAR SCIENTIST: Alert and oriented 3. No focal weakness. - Constitutional Vitals: Temp Pulse Resp BP Pulse Ox 97.8 F 64 18 133/73 96 01/12/18 04:36 01/12/18 04:36 01/12/18 04:36 01/12/18 04:36 01/12/18 04:36 Plan Activity: no restrictions Weight Bearing Status: Full Weight Bearing Diet: low cholesterol, low salt Additional Instructions: Follow up at [facility] in 1-2 weeks Follow up with: PRIMARY CAREMD [Primary Care Provider] - 3-5 Days Prescriptions: Clopidogrel [Plavix] 75 mg PO QDAY #30 tablet Cyclobenzaprine [Flexeril 10 MG TAB] 10 mg PO Q8H PRN #20 tablet PRN Reason: Muscle Spasm oxyCODONE /ACETAMINOPHEN [Percocet 5/325 mg] 2 tab PO Q8H PRN #12 tablet PRN Reason: Pain, Moderate (4-6)
[2018-01-12] MEDS: SENOKOT S PO SCH (08:00)
[2018-01-12] MEDS: PLAVIX PO SCH (09:40)
[2018-01-12] MEDS: ZESTRIL PO SCH (09:40)
[2018-01-12] MEDS: HABITROL TD SCH (09:41)
[2018-01-12] MEDS: NORVASC PO SCH (09:41)
[2018-01-12] MEDS: cefTRIAXone 1 GM in NACL 0.9% 20 ML IV SCH (09:45)
--- NOTE | 2018-01-12 10:15 | Consultation ---
History of Present Illness Consult date: 01/12/18 Requesting physician: NEHAL SAMAYOA Consult reason: other (accelerated junctional tachycardia ) History of present illness: The pt is a 62 YO male with a past medical history significant for HTN, HLP, CVA (20 years ago), pancreatitis, ETOH abuse, tobacco use, cocaine use. He is previously unknown to our practice. He presented with complaints of syncopal episode and left sided weakness. He reports that he took an illicit drug called "rema" which he believes also contained some cocaine and shortly after taking this drug, he passed out and fell onto the floor. He awoke to his trying to pick him up. After regaining consciousness, he noted left sided weakness and decided to seek medical attention. Following admission, he underwent head CT, brain MRI, head MRA and carotid dopplers which were all negative for any acute findings. He has been diagnosed with TIA per neurology. Yesterday afternoon, he was noted to have a bout of apparent accelerated junctional tachycardia and thus cardiology has been consulted. Pt denies any chest pain, palpitations, n/v , diaphoresis or dizziness. On evaluation, he reports that his left sided weakness has resolved and has no current complaints. Echo done 01/10/2018 showed EF 50-55%, mild to mod LVH, mild AR, trace MR, mild TR, negative bubble study. 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 denies: prescription drug abuse, IV drug use (20 years ago used to take heroin and cocaine nasally) Family history: diabetes (both sides of the family), hypertension (both sides of the family), stroke (maternal uncles), other (no history of epilepsy) Medications and Allergies Allergies Allergy/AdvReac Type Severity Reaction Status Date / Time shellfish derived Allergy Hives Verified 01/09/18 17:04 Home Medications Medication Instructions Recorded Confirmed Last Taken Type Aspirin [Aspirin TAB] 325 mg PO DAILY 01/11/18 01/11/18 Unknown History Brimonidine Tartrate [Brimonidine 1 drop OU BID 01/11/18 01/11/18 Unknown History Tartrate 0.2%] Folic Acid [Folvite] 1 mg PO DAILY 01/11/18 01/11/18 Unknown History Latanoprost [Xalatan] 2.5 ml OU DAILY 01/11/18 01/11/18 Unknown History Lisinopril [Zestril] 10 mg PO DAILY 01/11/18 01/11/18 Unknown History Pravastatin [Pravachol] 40 mg PO QHS 01/11/18 01/11/18 Unknown History Timolol 0.5% [Timoptic] 1 drops OU DAILY 01/11/18 01/11/18 Unknown History amLODIPine [Norvasc] 10 mg PO DAILY 01/11/18 01/11/18 Unknown History Clopidogrel [Plavix] 75 mg PO QDAY #30 tablet 01/12/18 Unknown Rx Cyclobenzaprine [Flexeril 10 MG 10 mg PO Q8H PRN #20 tablet 01/12/18 Unknown Rx TAB] oxyCODONE /ACETAMINOPHEN [Percocet 2 tab PO Q8H PRN #12 tablet 01/12/18 Unknown Rx 5/325 mg] Active Meds: Active Medications Acetaminophen (Tylenol) 650 mg PO Q4H PRN PRN Reason: Pain, Mild (1-3) Last Admin: 01/10/18 09:58 Dose: 650 mg Amlodipine Besylate (Norvasc) 10 mg PO QDAY [facility] Last Admin: 01/12/18 09:41 Dose: 10 mg Clopidogrel Bisulfate (Plavix) 75 mg PO QDAY [facility] Last Admin: 01/12/18 09:40 Dose: 75 mg Cyclobenzaprine HCl (Flexeril) 10 mg PO Q8H PRN PRN Reason: Muscle Spasm Last Admin: 01/11/18 22:06 Dose: 10 mg Hydralazine HCl (Apresoline) 10 mg IV Q4H PRN PRN Reason: Blood Pressure Last Admin: 01/10/18 09:57 Dose: 10 mg Ceftriaxone Sodium 1 gm/ (Sodium Chloride) 20 mls @ 2 mls/min IV Q24HR [facility] Last Admin: 01/12/18 09:45 Dose: 2 mls/min Lisinopril (Zestril) 20 mg PO QDAY [facility] Last Admin: 01/12/18 09:40 Dose: 20 mg Nicotine (Habitrol) 21 mg TD QDAY [facility] Last Admin: 01/12/18 09:41 Dose: 21 mg Oxycodone/Acetaminophen (Percocet 5/325) 2 tab PO Q8H PRN PRN Reason: Pain, Moderate (4-6) Last Admin: 01/11/18 22:06 Dose: 2 tab Pravastatin Sodium (Pravachol) 40 mg PO QHS [facility] Last Admin: 01/11/18 22:05 Dose: 40 mg Senna/Docusate Sodium (Senokot S) 1 tab PO Q12H [facility] Last Admin: 01/12/18 08:00 Dose: 1 tab Sodium Biphosphate/Sodium Phosphate (Fleet) 133 ml [place] QDAY PRN PRN Reason: Bowel Movement Last Admin: 01/11/18 22:05 Dose: 133 ml Review of Systems Constitutional: no weight loss, no weight gain, no fever, no chills, no sweats Ears, nose, mouth and throat: no ear pain, no nose pain, no sinus pressure, no sinus pain Cardiovascular: syncope, high blood pressure, no chest pain, no orthopnea, no palpitations, no rapid/irregular heart beat, no edema, no lightheadedness, no shortness of breath, no dyspnea on exertion, no paroxysmal nocturnal dyspnea, no leg edema, no decreased exercise tolerance Respiratory: no cough, no shortness of breath, no dyspnea on exertion, no congestion, no wheezing, no pain on inspiration Gastrointestinal: no abdominal pain, no nausea, no vomiting, no diarrhea, no constipation, no change in bowel habits Genitourinary Male: no dysuria, no hematuria, no flank pain, no discharge, no urinary frequency, no urinary hesitancy Musculoskeletal: no neck stiffness, no neck pain, no shooting arm pain, no arm numbness/tingling, no low back pain, no shooting leg pain, no leg numbness/ tingling, no redness of joints Integumentary: no rash, no pruritis, no redness, no sores, no wounds Neurological: weakness (left sided) Psychiatric: no anxiety Endocrine: no cold intolerance, no heat intolerance Hematologic/Lymphatic: no easy bruising, no easy bleeding, no lymphadenopathy Allergic/Immunologic: no urticaria, no wheezing, no persistent infections Physical Examination Vital Signs Temp Pulse BP Pulse Ox 98.6 F 93 H 197/86 97 01/09/18 17:02 01/09/18 17:02 01/09/18 17:02 01/09/18 17:02 General appearance: no acute distress HEENT: Positive: PERRL, Normocephaly, Mucus Membranes Moist Neck: Positive: neck supple, trachea midline Cardiac: Positive: Reg Rate and Rhythm, irregularly irregular Lungs: Positive: clear to auscultation Neuro: Positive: Grossly Intact, Cranial Nerve 2-12 Intact Abdomen: Positive: Soft. Negative: Tender Skin: Positive: Clear. Negative: Rash, Wound Musculoskeletal: No Fluid Collection, No Pain, Normal Range of Motion Extremities: Absent: edema Results 01/12/18 06:01 01/12/18 06:01 CBC 01/12/18 Range/Units 06:01 WBC 4.8 (4.5-11.0) K/mm3 RBC 3.85 (3.65-5.03) M/mm3 Hgb 11.8 (11.8-15.2) gm/dl Hct 35.0 L (35.5-45.6) % Plt Count 194 (140-440) K/mm3 Lymph # 1.1 L (1.2-5.4) K/mm3 [place] # 0.5 (0.0-0.8) K/mm3 Eos # 0.4 (0.0-0.4) K/mm3 Baso # 0.0 (0.0-0.1) K/mm3 Comprehensive Metabolic Panel 01/12/18 Range/Units 06:01 Sodium 137 (137-145) mmol/L Potassium 2.9 L* (3.6-5.0) mmol/L Chloride 97.7 L (98-107) mmol/L Carbon Dioxide 31 H (22-30) mmol/L BUN 9 (9-20) mg/dL Creatinine 0.6 L (0.8-1.5) mg/dL Glucose 86 (75-100) mg/dL Calcium 8.6 (8.4-10.2) mg/dL - Imaging and Cardiology EKG: report reviewed, image reviewed EKG interpretations - Telemetry EKG Rhythm: Sinus Rhythm - EKG Sinus rhythms and dysrhythmias: sinus rhythm Assessment and Plan Assessment: Transient accelerated junctional tachycardia TIA Syncope HTN HLP Elevated total CK Hypokalemia H/o CVA 20 years ago ETOH abuse / illicit drug use / tobacco use - cessation encouraged Plan: Echo done 01/10/2018 showed EF 50-55%, mild to mod LVH, mild AR, trace MR, mild TR, negative bubble study. Replete K+. Obtain serum Mg. Currently stable cardiac status. Pt may discharge home from cardiology standpoint. Can consider further eval as OP if warranted. Recommend follow up in our office with Arminda Dixon NP, within 2 weeks of hospital discharge ([phone]). The patient has been seen in conjunction with Dr. Leigh who agrees with the assessment and plan of care.
[2018-01-12] MEDS ORDERED: K-DUR PO ONE ×2 (11:00→16:00)
[2018-01-12 12:38] VITALS: BP 132/76
--- NOTE | 2018-01-15 17:10 | Vascular Lab Report ---
CAROTID DUPLEX STUDY: RIGHT PSVEDV CCA PROX:[id number] CCA DIST:[id number] ICA PROX:78 11 ICA MID:88 24 ICA DIST:[id number] ECA: [id number] VERT: 44 5 LEFT PSVEDV CCA PROX:43002 CCA DIST:01922 ICA PROX:95 11 ICA MID:92 28 ICA DIST:[id number] ECA: [id number] VERT: 66 18 REASON FOR EXAM: Stroke. COMMENTS ON THE RIGHT: Doppler frequency analysis is consistent with 16 to 49 percent diameter reduction of the internal carotid artery. Minimal amount of plaque is seen. The common carotid artery is patent. The external carotid artery is patent. The vertebral artery has antegrade flow. COMMENTS ON THE LEFT: Doppler frequency analysis is consistent with 16 to 49 percent diameter reduction of the internal carotid artery. A small amount of plaque is seen. The common carotid artery is patent. The external carotid artery is patent. The vertebral artery has antegrade flow. IMPRESSION: Less than 50% diameter reduction in the internal carotid arteries bilaterally.
== END 2018-01-12 18:10 | disposition home or self-care (01) | DRG 69 ==
LOC: ED 16:56 → 3A 22:10
PROVIDERS: ADMIT Internal Medicine; ATTEND Internal Medicine
DX: G45.9 Transient cerebral ischemic attack, unspecified (principal); N39.0 Urinary tract infection, site not specified; I16.1 Hypertensive emergency; F19.10 Other psychoactive substance abuse, uncomplicated; E87.6 Hypokalemia; I10 Essential (primary) hypertension; F17.210 Nicotine dependence, cigarettes, uncomplicated; F10.10 Alcohol abuse, uncomplicated; E78.5 Hyperlipidemia, unspecified; F14.90 Cocaine use, unspecified, uncomplicated; Z86.73 Personal history of transient ischemic attack (TIA), and cerebral infarction without residual deficits; Z91.013 Allergy to seafood; Z82.49 Family history of ischemic heart disease and other diseases of the circulatory system; Z90.49 Acquired absence of other specified parts of digestive tract; Z83.3 Family history of diabetes mellitus; Z82.3 Family history of stroke; R55 Syncope and collapse
CPT/HCPCS: 36415; 70450; 70544; 70551; 80048; 80061; 80074; 80307; 80320; 81001; 82550; 82553; 82962; 83735; 84484; 85025; 85610; 85670; 85730; 93005; 93010; 93306; 93880; 99285; 99406; A9270-GY; G0480; J0360; J0696; J3411; J3480; J7030

== ENCOUNTER 2019-02-18 11:35 | Inpatient (IN) | payer OTHER ==
--- NOTE | 2019-02-18 11:51 | Event Note ---
ED Screening Note Date of service: 02/18/19 Time: 11:47 ED Screening Note: 63 y/o male comes in for periumbilus pain since last night. Admits to drinking. This initial assessment/diagnostic orders/clinical plan/treatment(s) is/are subject to change based on patients health status, clinical progression and re- assessment by fellow clinical providers in the ED. Further treatment and workup at subsequent clinical providers discretion. Patient/guardian urged not to elope from the ED as their condition may be serious if not clinically assessed and managed. Initial orders include:
[2019-02-18 12:15] LABS: Basophils # (Auto) 0.1 K/mm3 (0.0-0.1); Basophils % (Auto) 0.7 % (0.0-1.8); Lymphocytes # (Auto) 0.9 K/mm3 (1.2-5.4); Lymphocytes % (Auto) 11.3 % (13.4-35.0); Mean Corpuscular HGB Conc 37 % (32-34); Mean Corpuscular Volume 91 fl (84-94); Monocytes # (Auto) 0.6 K/mm3 (0.0-0.8); Monocytes % (Auto) 7.8 % (0.0-7.3); Platelet Count 283 K/mm3 (140-440); Red Blood Count 4.86 M/mm3 (3.65-5.03); Red Cell Distribution Width 14.2 % (13.2-15.2)
[2019-02-18 12:20] LABS: Hematocrit 44.3 % (35.5-45.6); Hemoglobin 16.2 gm/dl (11.8-15.2)
[2019-02-18 12:55] LABS: BUN/Creatinine Ratio TNR; Blood Urea Nitrogen TNR mg/dL (9-20)
[2019-02-18 12:56] LABS: Alanine Aminotransferase TNR units/L (7-56); Albumin TNR g/dL (3.9-5); Calcium TNR mg/dL (8.4-10.2); Hemolysis Index TNR
[2019-02-18 12:59] LABS: Bilirubin,Urine NEG (Negative); Blood,Urine SM (Negative); Color,Urine Yellow (Yellow); Mucus,Urine FEW /HPF; Urobilinogen,Urine < 2.0 mg/dL (<2.0)
[2019-02-18] MEDS ORDERED: NACL 0.9% 1000 ML 1,000 ML IV ONE ×2 (13:58→16:41)
[2019-02-18] MEDS ORDERED: ZOFRAN IV ONE (13:58)
--- NOTE | 2019-02-18 13:59 | Emergency Department Report ---
HPI - General Chief Complaint: Abdominal Pain Time Seen by Provider: 02/18/19 13:53 - HPI HPI: Patient is a 63-year-old -[place] male who comes into the ER today complaining of abdominal pain that started last night. He states he feels like he has a knot in his stomach. On admission pt noted to be hypertensive and afebrile. No vomiting but does complain of nausea. He had 2 loose stools today. He denies blood in stool. PMH HTN CVA 15 y ago THC Cig use stopped ETOH 4 days ago He is off all meds due to insurance issues. he reports being off several months. ED Past Medical Hx - Past Medical History Hx Hypertension: Yes Hx Congestive Heart Failure: No Hx Diabetes: No Hx Asthma: No Hx COPD: No - Family History Family history: no significant - Social History Smoking Status: Current Every Day Smoker Substance Use Type: Alcohol, Marijuana - Medications Home Medications: Home Medications Medication Instructions Recorded Confirmed Last Taken Type Aspirin 325 mg PO DAILY 01/11/18 01/11/18 Unknown History Brimonidine Tartrate [Brimonidine 1 drop OU BID 01/11/18 01/11/18 Unknown History Tartrate 0.2%] Folic Acid [Folvite] 1 mg PO DAILY 01/11/18 01/11/18 Unknown History Latanoprost [Xalatan] 2.5 ml OU DAILY 01/11/18 01/11/18 Unknown History Lisinopril [Zestril] 10 mg PO DAILY 01/11/18 01/11/18 Unknown History Pravastatin [Pravachol] 40 mg PO QHS 01/11/18 01/11/18 Unknown History Timolol 0.5% [Timoptic] 1 drops OU DAILY 01/11/18 01/11/18 Unknown History amLODIPine [Norvasc] 10 mg PO DAILY 01/11/18 01/11/18 Unknown History Clopidogrel [Plavix] 75 mg PO QDAY #30 tablet 01/12/18 Unknown Rx ED Review of Systems ROS: Stated complaint: ABDOMINAL PAIN Other details as noted in HPI Comment: All other systems reviewed and negative Physical Exam - Physical Exam Vital Signs: Vital Signs 02/18/19 11:47 Temperature 97.4 F L Pulse Rate 87 Respiratory 18 Rate Blood Pressure 185/102 O2 Sat by Pulse 97 Oximetry Physical Exam: WDWN patient in NAD VS per RN flow sheet Alert and oriented to person, place and time. S1-S2. No S3 or S4. No systolic or diastolic murmur. No JVD. No pitting edema. Lungs clear to auscultation bilaterally anteriorly and posteriorly. Abdomen round and tender over epigastric area. no n/v in ER. Moves all extremities well. Mood and affect appropriate. ED Course Vital Signs 02/18/19 11:47 Temperature 97.4 F L Pulse Rate 87 Respiratory 18 Rate Blood Pressure 185/102 O2 Sat by Pulse 97 Oximetry - Reevaluation(s) Reevaluation #1: 02/18/19 18:45 DR WILSON PHONED. HE WILL COME SEE THE PT. HOME RX THAT HE IS TO BE ON- BUT NOT ASA BRIMONIDINE FOLIC ACID LATANOPROST LISINOPRIL PRAVASTATIN TIMOL NORVASC PLAVIX PT UPDATED AND STILL HAVING PAIN. Reevaluation #2: 02/18/19 18:55 DR WILSON TO SEE PT HE WILL BE ADMITTED ED Medical Decision Making - Lab Data Result diagrams: 02/18/19 12:02 02/18/19 14:04 - Radiology Data Radiology results: report reviewed, image reviewed - Medical Decision Making Lab Results 02/18/19 02/18/19 02/18/19 Range/Units 12:02 12:02 12:21 WBC 7.7 (4.5-11.0) K/mm3 RBC 4.86 (3.65-5.03) M/mm3 Hgb 16.2 H (11.8-15.2) gm/dl Hct 44.3 (35.5-45.6) % MCV 91 (84-94) fl MCH 33 H (28-32) pg MCHC 37 H (32-34) % RDW 14.2 (13.2-15.2) % Plt Count 283 (140-440) K/mm3 Lymph % (Auto) 11.3 L (13.4-35.0) % [place] % (Auto) 7.8 H (0.0-7.3) % Eos % (Auto) 0.0 (0.0-4.3) % Baso % (Auto) 0.7 (0.0-1.8) % Lymph # 0.9 L (1.2-5.4) K/mm3 [place] # 0.6 (0.0-0.8) K/mm3 Eos # 0.0 (0.0-0.4) K/mm3 Baso # 0.1 (0.0-0.1) K/mm3 Seg Neutrophils % 80.2 H (40.0-70.0) % Seg Neutrophils # 6.2 (1.8-7.7) K/mm3 Sodium TNR Potassium TNR Chloride TNR Carbon Dioxide TNR Anion Gap TNR BUN TNR Creatinine TNR Estimated GFR TNR BUN/Creatinine Ratio TNR Glucose TNR Calcium TNR Total Bilirubin TNR AST TNR ALT TNR Alkaline Phosphatase TNR Total Protein TNR Albumin TNR Albumin/Globulin Ratio TNR Lipase TNR Urine Color Yellow (Yellow) Urine Turbidity Clear (Clear) Urine pH 6.0 (5.0-7.0) Ur Specific [place] 1.021 (1.003-1.030) Urine Protein 30 mg/dl (Negative) mg/dL Urine Glucose (UA) 150 (Negative) mg/dL Urine Ketones Tr (Negative) mg/dL Urine Blood Sm (Negative) Urine Nitrite Neg (Negative) Urine Bilirubin Neg (Negative) Urine Urobilinogen < 2.0 (<2.0) mg/dL Ur Leukocyte Esterase Neg (Negative) Urine WBC (Auto) 1.0 (0.0-6.0) /HPF Urine RBC (Auto) 9.0 (0.0-6.0) /HPF U Epithel Cells (Auto) < 1.0 (0-13.0) /HPF Urine Mucus Few /HPF 02/18/19 02/18/19 Range/Units 14:04 14:04 WBC (4.5-11.0) K/mm3 RBC (3.65-5.03) M/mm3 Hgb (11.8-15.2) gm/dl Hct (35.5-45.6) % MCV (84-94) fl MCH (28-32) pg MCHC (32-34) % RDW (13.2-15.2) % Plt Count (140-440) K/mm3 Lymph % (Auto) (13.4-35.0) % [place] % (Auto) (0.0-7.3) % Eos % (Auto) (0.0-4.3) % Baso % (Auto) (0.0-1.8) % Lymph # (1.2-5.4) K/mm3 [place] # (0.0-0.8) K/mm3 Eos # (0.0-0.4) K/mm3 Baso # (0.0-0.1) K/mm3 Seg Neutrophils % (40.0-70.0) % Seg Neutrophils # (1.8-7.7) K/mm3 Sodium 128 L Potassium 3.1 L Chloride 89.8 L Carbon Dioxide 19 L Anion Gap 22 BUN 14 Creatinine 0.5 L Estimated GFR > 60 BUN/Creatinine Ratio 28 Glucose 126 H Calcium 8.0 L Total Bilirubin 1.00 AST 673 H ALT 249 H Alkaline Phosphatase 163 H Total Protein 7.3 Albumin 4.0 Albumin/Globulin Ratio 1.2 Lipase 130 H Urine Color (Yellow) Urine Turbidity (Clear) Urine pH (5.0-7.0) Ur Specific [place] (1.003-1.030) Urine Protein (Negative) mg/dL Urine Glucose (UA) (Negative) mg/dL Urine Ketones (Negative) mg/dL Urine Blood (Negative) Urine Nitrite (Negative) Urine Bilirubin (Negative) Urine Urobilinogen (<2.0) mg/dL Ur Leukocyte Esterase (Negative) Urine WBC (Auto) (0.0-6.0) /HPF Urine RBC (Auto) (0.0-6.0) /HPF U Epithel Cells (Auto) (0-13.0) /HPF Urine Mucus /HPF Vital Signs 02/18/19 02/18/19 11:47 14:34 Temperature 97.4 F L Pulse Rate 87 Respiratory 18 18 Rate Blood Pressure 185/102 O2 Sat by Pulse 97 Oximetry NS X 2 L MORPHINE/ZOFRAN FOR PAIN/ NAUSEA GI COCKTAIL LABS NOTED K REPLACED CONTINUED TO COMPLAIN OF PAIN- LORTAB X [address] WILSON ASKED TO SEE THE PATIENT PT UPDATED AND STILL COMPLAINING OF PAIN; NO VOMITING - Differential Diagnosis RO PANCREATITIS/KIDNEY STONE Critical care attestation.: If time is entered above; I have spent that time in minutes in the direct care of this critically ill patient, excluding procedure time. ED Disposition Clinical Impression: Abdominal pain Disposition: OP ADMIT IP TO THIS HOSP Is pt being admited?: Yes Does the pt Need Aspirin: No Condition: Stable Referrals: [facility], MD [Primary Care Provider] - 3-5 Days Time of Disposition: 17:29
[2019-02-18] MEDS ORDERED: NORCO 5/325 PO ONE (14:29)
[2019-02-18 14:54] LABS: BUN/Creatinine Ratio 28; Blood Urea Nitrogen 14 mg/dL (9-20); Hemolysis Index 87
[2019-02-18 15:07] LABS: Alanine Aminotransferase 249 units/L (7-56)
[2019-02-18] MEDS ORDERED: MORPHINE IV ONE (16:41)
[2019-02-18] MEDS ORDERED: ALUM-MAG HYDROX-SIMETH 200-200-20MG/5ML PO ONE (18:02)
[2019-02-18] MEDS ORDERED: PROTONIX PO ONE (18:02)
[2019-02-18] MEDS ORDERED: LIDOCAINE VISCOUS 2% PO ONE (18:02)
[2019-02-18] MEDS ORDERED: K-DUR PO ONE (18:03)
--- NOTE | 2019-02-18 18:31 | Cat Scan Report ---
PROCEDURE: CT ABDOMEN PELVIS W CON TECHNIQUE: Computerized axial tomography of the abdomen and pelvis was performed after the administr ation of IV iodinated nonionic contrast. CT DOSE LENGTH PRODUCT: 1134.3 mGycm HISTORY: abd pain COMPARISONS: None . FINDINGS: Visualized lower thorax: There is platelike atelectasis at the right lung base. Liver: Normal size and attenuation. Spleen: Normal size and attenuation. Gallbladder and biliary system: There has been cholecystectomy. Dilatation of the common bile duct is likely related to prior cholecystectomy. Pancreas: There is a large circumscribed low density mass in the pancreatic tail, which may be a pse udocyst. This measures 9.6 cm transverse x 6.8 cm AP x 6.8 cm craniocaudal. There is nodularity anter iorly however which could be related to the normal pancreatic tissue versus related to the cyst. Adrenals: Normal. Kidneys: Bilateral subcentimeter low-attenuation lesions are compatible with renal cysts. GI tract: There is sigmoid diverticulosis. No bowel obstruction or inflammation. There is no appendi ceal inflammation. Lymph nodes and mesentery: Normal. Vasculature: Aortic and bilateral common iliac artery atherosclerotic calcification. Bladder: Normal. Reproductive organs: Prominent prostate gland. Peritoneum: No free fluid. Musculoskeletal structures: There are degenerative disc changes at L5-S1. Other: None. IMPRESSION: Large cystic mass in the pancreatic tail, which may be a pancreatic pseudocyst or possible cystic frannie plasm. Recommend further evaluation with MRI without and with the use of IV contrast Prominent prostate gland. This document is electronically signed by Gloria Mckeon MD., February 18 2019 06:29:28 PM ET
[2019-02-18] MEDS ORDERED: SODIUM CHLORIDE FLUSH SYRINGE 10 ML IV PRN (21:09)
[2019-02-18] MEDS ORDERED: TYLENOL PO PRN (21:09)
[2019-02-18] MEDS ORDERED: ZOFRAN IV PRN (21:09)
--- NOTE | 2019-02-18 21:32 | History and Physical Report ---
History of Present Illness Date of examination: 02/18/19 Date of admission: 02/18/2019 Chief complaint: Epigastric abdominal pain History of present illness: Pt is a 63-year-old male with PMHx of recurrent pancreatitis, alcohol use disorder, hypertension, CVA who presents to the ER with complaints of epigastric abdominal pain. Patient states that the pain started since last night, it is a constant pain located in the epigastric area, associated with nausea, denies vomiting, patient also reports that earlier today he started to experience some loose stool, and he had several episodes. Patient denies blood dentist, denies fever, denied vomiting, he states that the food aggravates the pain. Patient reports a history of pancreatitis when he drinks alcohol, he reports consuming alcohol 2 days ago on Monday. In the ER patient's blood pressure was elevated, his laboratory values showed a lipase level of 1:30, his sodium was 128 and potassium 3.1. Patient is admitted for acute pancreatitis. Past History Past Medical History: hypertension, stroke Social history: smoking, alcohol abuse Medications and Allergies Allergies Allergy/AdvReac Type Severity Reaction Status Date / Time shellfish derived Allergy Hives Verified 02/18/19 11:37 Home Medications Medication Instructions Recorded Confirmed Last Taken Type Aspirin 325 mg PO DAILY 01/11/18 01/11/18 Unknown History Brimonidine Tartrate [Brimonidine 1 drop OU BID 01/11/18 01/11/18 Unknown History Tartrate 0.2%] Folic Acid [Folvite] 1 mg PO DAILY 01/11/18 01/11/18 Unknown History Latanoprost [Xalatan] 2.5 ml OU DAILY 01/11/18 01/11/18 Unknown History Lisinopril [Zestril] 10 mg PO DAILY 01/11/18 01/11/18 Unknown History Pravastatin [Pravachol] 40 mg PO QHS 01/11/18 01/11/18 Unknown History Timolol 0.5% [Timoptic] 1 drops OU DAILY 01/11/18 01/11/18 Unknown History amLODIPine [Norvasc] 10 mg PO DAILY 01/11/18 01/11/18 Unknown History Clopidogrel [Plavix] 75 mg PO QDAY #30 tablet 01/12/18 Unknown Rx Active Meds: Active Medications Acetaminophen (Tylenol) 650 mg PO Q4H PRN PRN Reason: Pain MILD(1-3)/Fever >100.5/[place] Sodium Chloride (Nacl 0.9% 1000 Ml) 1,000 mls @ 75 mls/hr IV DIRECT JEMMA Ondansetron HCl (Zofran) 4 mg IV Q8H PRN PRN Reason: Nausea And Vomiting Oxycodone/Acetaminophen (Percocet 5/325) 1 tab PO Q6H PRN PRN Reason: Pain, Moderate (4-6) Sodium Chloride (Sodium Chloride Flush Syringe 10 Ml) 10 ml IV BID JEMMA Sodium Chloride (Sodium Chloride Flush Syringe 10 Ml) 10 ml IV PRN PRN PRN Reason: LINE FLUSH Review of Systems Gastrointestinal: abdominal pain Exam - Constitutional Vitals: Temp Pulse Resp BP Pulse Ox 97.4 F L 97 H 20 191/100 97 02/18/19 11:47 02/18/19 18:55 02/18/19 19:47 02/18/19 18:55 02/18/19 19:47 General appearance: Present: no acute distress - EENT Eyes: Present: EOM intact ENT: hearing intact - Neck Neck: Present: normal ROM - Respiratory Respiratory: bilateral: CTA - Cardiovascular Rhythm: regular Heart Sounds: Present: S1 & S2 - Extremities Extremities: no ischemia Peripheral Pulses: within normal limits - Abdominal General gastrointestinal: Present: deferred - Rectal Rectal Exam: deferred - Integumentary Integumentary: Present: clear, warm - Musculoskeletal Musculoskeletal: strength equal bilaterally - Psychiatric Psychiatric: cooperative - Neurologic Neurologic: moves all extremities Results - Labs CBC & Chem 7: 02/18/19 12:02 02/18/19 14:04 Labs: Laboratory Last Values WBC 7.7 K/mm3 (4.5-11.0) 02/18/19 12:02 RBC 4.86 M/mm3 (3.65-5.03) 02/18/19 12:02 Hgb 16.2 gm/dl (11.8-15.2) H 02/18/19 12:02 Hct 44.3 % (35.5-45.6) 02/18/19 12:02 MCV 91 fl (84-94) 02/18/19 12:02 MCH 33 pg (28-32) H 02/18/19 12:02 MCHC 37 % (32-34) H 02/18/19 12:02 RDW 14.2 % (13.2-15.2) 02/18/19 12:02 Plt Count 283 K/mm3 (140-440) 02/18/19 12:02 Lymph % (Auto) 11.3 % (13.4-35.0) L 02/18/19 12:02 [place] % (Auto) 7.8 % (0.0-7.3) H 02/18/19 12:02 Eos % (Auto) 0.0 % (0.0-4.3) 02/18/19 12:02 Baso % (Auto) 0.7 % (0.0-1.8) 02/18/19 12:02 Lymph # 0.9 K/mm3 (1.2-5.4) L 02/18/19 12:02 [place] # 0.6 K/mm3 (0.0-0.8) 02/18/19 12:02 Eos # 0.0 K/mm3 (0.0-0.4) 02/18/19 12:02 Baso # 0.1 K/mm3 (0.0-0.1) 02/18/19 12:02 Seg Neutrophils % 80.2 % (40.0-70.0) H 02/18/19 12:02 Seg Neutrophils # 6.2 K/mm3 (1.8-7.7) 02/18/19 12:02 Sodium 128 mmol/L (137-145) L 02/18/19 14:04 Potassium 3.1 mmol/L (3.6-5.0) L 02/18/19 14:04 Chloride 89.8 mmol/L (98-107) L 02/18/19 14:04 Carbon Dioxide 19 mmol/L (22-30) L 02/18/19 14:04 22 mmol/L 02/18/19 14:04 BUN 14 mg/dL (9-20) 02/18/19 14:04 0.5 mg/dL (0.8-1.5) L 02/18/19 14:04 Estimated GFR > 60 ml/min 02/18/19 14:04 28 % 02/18/19 14:04 Glucose 126 mg/dL (75-100) H 02/18/19 14:04 Calcium 8.0 mg/dL (8.4-10.2) L 02/18/19 14:04 1.00 mg/dL (0.1-1.2) 02/18/19 14:04 AST 673 units/L (5-40) H 02/18/19 14:04 ALT 249 units/L (7-56) H 02/18/19 14:04 163 units/L (35-129) H 02/18/19 14:04 7.3 g/dL (6.3-8.2) 02/18/19 14:04 4.0 g/dL (3.9-5) 02/18/19 14:04 1.2 % 02/18/19 14:04 Amylase 68 units/L (27-131) 02/18/19 14:04 130 units/L (13-60) H 02/18/19 14:04 Yellow (Yellow) 02/18/19 12:21 Clear (Clear) 02/18/19 12:21 6.0 (5.0-7.0) 02/18/19 12:21 Ur Specific [place] 1.021 (1.003-1.030) 02/18/19 12:21 30 mg/dl mg/dL (Negative) 02/18/19 12:21 150 mg/dL (Negative) 02/18/19 12:21 Tr mg/dL (Negative) 02/18/19 12:21 Sm (Negative) 02/18/19 12:21 Neg (Negative) 02/18/19 12:21 Neg (Negative) 02/18/19 12:21 < 2.0 mg/dL (<2.0) 02/18/19 12:21 Ur Leukocyte Esterase Neg (Negative) 02/18/19 12:21 1.0 /HPF (0.0-6.0) 02/18/19 12:21 9.0 /HPF (0.0-6.0) 02/18/19 12:21 U Epithel Cells (Auto) < 1.0 /HPF (0-13.0) 02/18/19 12:21 Few /HPF 02/18/19 12:21 Assessment and Plan Assessment and plan: 1. Acute pancreatitis 2. Abdominal pain (due to pancreatitis) 3. Recent alcohol use 4. Transaminitis 5. Hyponatremia 6. Hypokalemia Plan: patient is admitted for acute pancreatitis Chief nothing by mouth after midnight Consult GI for evaluation Continue IVF for hydration, replace NA CIWA protocol Replace potassium Banana bag with Thiamine, multivitamin, folic acid daily Monitor liver function test Further plan per hospital course Advance Directives: Yes VTE prophylaxis?: Chemical, Mechanical Contraindication Mechanical VTE Prophylaxis: Contraindicated Reason for no VTE Prophylaxis: Anticoagulant allergy (e) Plan of care discussed with patient/family: Yes
[2019-02-18] MEDS: SODIUM CHLORIDE FLUSH SYRINGE 10 ML IV SCH (22:41)
[2019-02-18] MEDS: PERCOCET 5/325 PO PRN (22:57)
[2019-02-18] MEDS ORDERED: PERCOCET 5/325 ONE (22:59)
[2019-02-18] MEDS ORDERED: ZESTRIL PO ONE (23:19)
[2019-02-18] MEDS ORDERED: ZESTRIL ONE (23:30)
[2019-02-19] MEDS: APRESOLINE IV PRN ×2 (00:02→21:51)
[2019-02-19] MEDS ORDERED: HALDOL IV PRN (01:28)
[2019-02-19] MEDS ORDERED: ATIVAN IV PRN (01:28)
[2019-02-19] MEDS ORDERED: MORPHINE IV PRN (07:36)
[2019-02-19] MEDS ORDERED: K-DUR PO NR (07:39)
[2019-02-19] MEDS ORDERED: VITAMIN B-1 100 MG, FOLVITE 1 MG, INFUVITE 10 ML in NACL 0.9% 1000 ML 1,000 ML IV ONE (08:00)
[2019-02-19 09:58] LABS: BUN/Creatinine Ratio 14; Blood Urea Nitrogen 11 mg/dL (9-20); Calcium 8.3 mg/dL (8.4-10.2); Hemolysis Index 221
[2019-02-19] MEDS: SODIUM CHLORIDE FLUSH SYRINGE 10 ML IV SCH ×2 (10:07→21:58)
[2019-02-19] MEDS: PERCOCET 5/325 PO PRN ×2 (10:08→21:56)
[2019-02-19] MEDS: ZESTRIL PO SCH (10:08)
--- NOTE | 2019-02-19 10:44 | Gastroenterology Consultation ---
History of Present Illness - Reason for Consult Consult date: 02/19/19 elevated LFTs Requesting physician: TAY PHIPPS - History of Present Illness Patient is a 63 y/o male with PMH of HTN, CVA (TIA 09/29 cocaine use), ETOH/substance abuse, and chronic pancreatitis who presented to ED with c/o abdominal pain with associated nausea. Upon admission, his LFTs were found to be elevated to which GI has been consulted. This morning patient was resting in bed w/o acute distress. He reports feeling better with abd pain improved and nausea resolved. Denies fever, CP, SOB, wt loss, jaundice, signs of bleeding, or LGI symptoms. States he has a hx of recurrent pancreatitis over the past 5 years with a known prior pancreatic cyst that was drained ~ 2 yrs ago while in [place], with being told there was a possibility it could turn in to cancer in the future (records unavailable; likely IPMN) but he has not followed up due to lack of insurance. No Fhx of liver disease or GI cancers. Admits to continued heavy alcohol use with ~ 1 pint of liquor daily (last alcohol consumption 2 days ago) and substance abuse with marijuana, tobacco, and cocaine (last used ~1 month ago). Past History Past Medical History: other (as per HPI) Past Surgical History: Other (pancreatic cyst drained while in [place] ~ 2 yrs ago) Social history: smoking, alcohol abuse, other (marijuana, cocaine) Family history: diabetes, hypertension, stroke Medications and Allergies Allergies Allergy/AdvReac Type Severity Reaction Status Date / Time shellfish derived Allergy Hives Verified 02/18/19 11:37 Home Medications Medication Instructions Recorded Confirmed Last Taken Type Aspirin 325 mg PO DAILY 01/11/18 01/11/18 Unknown History Brimonidine Tartrate [Brimonidine 1 drop OU BID 01/11/18 01/11/18 Unknown History Tartrate 0.2%] Folic Acid [Folvite] 1 mg PO DAILY 01/11/18 01/11/18 Unknown History Latanoprost [Xalatan] 2.5 ml OU DAILY 01/11/18 01/11/18 Unknown History Lisinopril [Zestril] 10 mg PO DAILY 01/11/18 01/11/18 Unknown History Pravastatin [Pravachol] 40 mg PO QHS 01/11/18 01/11/18 Unknown History Timolol 0.5% [Timoptic] 1 drops OU DAILY 01/11/18 01/11/18 Unknown History amLODIPine [Norvasc] 10 mg PO DAILY 01/11/18 01/11/18 Unknown History Clopidogrel [Plavix] 75 mg PO QDAY #30 tablet 01/12/18 Unknown Rx Active Meds: Active Medications Acetaminophen (Tylenol) 650 mg PO Q4H PRN PRN Reason: Pain MILD(1-3)/Fever >100.5/[place] Haloperidol Lactate (Haldol) 5 mg IV Q1HR PRN PRN Reason: Unrespon. to mult. doses BZD's Hydralazine HCl (Apresoline) 10 mg IV Q4HR PRN PRN Reason: Hypertension Last Admin: 02/19/19 00:02 Dose: 10 mg Documented by: Sodium Chloride (Nacl 0.9% 1000 Ml) 1,000 mls @ 75 mls/hr IV DIRECT [facility] Last Admin: 02/19/19 00:00 Dose: 75 mls/hr Documented by: Thiamine HCl 100 mg/ Folic Acid 1 mg/ Multivitamins/Minerals 10 ml/ Sodium Chloride 1,011.2 mls @ 250 mls/hr IV ONCE ONE Stop: 02/19/19 12:02 Last Admin: 02/19/19 10:06 Dose: 250 mls/hr Documented by: Lisinopril (Zestril) 20 mg PO QDAY [facility] Last Admin: 02/19/19 10:08 Dose: 20 mg Documented by: Lorazepam (Ativan) 2 mg IV Q1HR PRN PRN Reason: CIWA-Ar 8-15 Morphine Sulfate (Morphine) 4 mg IV Q3H PRN PRN Reason: Pain , Severe (7-10) Ondansetron HCl (Zofran) 4 mg IV Q8H PRN PRN Reason: Nausea And Vomiting Last Admin: 02/19/19 00:53 Dose: 4 mg Documented by: Oxycodone/Acetaminophen (Percocet 5/325) 1 tab PO Q6H PRN PRN Reason: Pain, Moderate (4-6) Last Admin: 02/19/19 10:08 Dose: 1 tab Documented by: Sodium Chloride (Sodium Chloride Flush Syringe 10 Ml) 10 ml IV BID [facility] Last Admin: 02/19/19 10:07 Dose: 10 ml Documented by: Sodium Chloride (Sodium Chloride Flush Syringe 10 Ml) 10 ml IV PRN PRN PRN Reason: LINE FLUSH medications reviewed/updated as required Review of Systems - Review of Systems All systems: negative Gastrointestinal: abdominal pain, nausea Exam - Constitutional Vital Signs: Temp Pulse Resp BP Pulse Ox 99.0 F 106 H 20 168/90 98 02/19/19 07:46 02/19/19 10:08 02/19/19 10:08 02/19/19 10:08 02/19/19 07:46 General appearance: no acute distress - EENT Eyes: PERRL, EOM intact ENT: hearing intact - Respiratory Respiratory effort: normal - Cardiovascular Rhythm: other (tachycardia) - Gastrointestinal General gastrointestinal: Present: soft, tender (slight TTP in epigastric/LUQ), non-distended, normal bowel sounds - Neurologic Neurological: alert and oriented x3 - Labs CBC & Chem 7: 02/18/19 12:02 02/19/19 09:02 Lab Results: Laboratory Results - last 24 hr 02/18/19 02/18/19 02/18/19 12:02 12:02 12:21 WBC 7.7 RBC 4.86 Hgb 16.2 H Hct 44.3 MCV 91 MCH 33 H MCHC 37 H RDW 14.2 Plt Count 283 Lymph % (Auto) 11.3 L [place] % (Auto) 7.8 H Eos % (Auto) 0.0 Baso % (Auto) 0.7 Lymph # 0.9 L [place] # 0.6 Eos # 0.0 Baso # 0.1 Seg Neutrophils % 80.2 H Seg Neutrophils # 6.2 Sodium TNR Potassium TNR Chloride TNR Carbon Dioxide TNR Anion Gap TNR BUN TNR Creatinine TNR Estimated GFR TNR BUN/Creatinine Ratio TNR Glucose TNR Calcium TNR Total Bilirubin TNR AST TNR ALT TNR Alkaline Phosphatase TNR Total Protein TNR Albumin TNR Albumin/Globulin Ratio TNR Amylase Lipase TNR Urine Color Yellow Urine Turbidity Clear Urine pH 6.0 Ur Specific [place] 1.021 Urine Protein 30 mg/dl Urine Glucose (UA) 150 Urine Ketones Tr Urine Blood Sm Urine Nitrite Neg Urine Bilirubin Neg Urine Urobilinogen < 2.0 Ur Leukocyte Esterase Neg Urine WBC (Auto) 1.0 Urine RBC (Auto) 9.0 U Epithel Cells (Auto) < 1.0 Urine Mucus Few 02/18/19 02/18/19 02/18/19 14:04 14:04 14:04 WBC RBC Hgb Hct MCV MCH MCHC RDW Plt Count Lymph % (Auto) [place] % (Auto) Eos % (Auto) Baso % (Auto) Lymph # [place] # Eos # Baso # Seg Neutrophils % Seg Neutrophils # Sodium 128 L Potassium 3.1 L Chloride 89.8 L Carbon Dioxide 19 L Anion Gap 22 BUN 14 Creatinine 0.5 L Estimated GFR > 60 BUN/Creatinine Ratio 28 Glucose 126 H Calcium 8.0 L Total Bilirubin 1.00 AST 673 H ALT 249 H Alkaline Phosphatase 163 H Total Protein 7.3 Albumin 4.0 Albumin/Globulin Ratio 1.2 Amylase 68 Lipase 130 H Urine Color Urine Turbidity Urine pH Ur Specific [place] Urine Protein Urine Glucose (UA) Urine Ketones Urine Blood Urine Nitrite Urine Bilirubin Urine Urobilinogen Ur Leukocyte Esterase Urine WBC (Auto) Urine RBC (Auto) U Epithel Cells (Auto) Urine Mucus 02/19/19 09:02 WBC RBC Hgb Hct MCV MCH MCHC RDW Plt Count Lymph % (Auto) [place] % (Auto) Eos % (Auto) Baso % (Auto) Lymph # [place] # Eos # Baso # Seg Neutrophils % Seg Neutrophils # Sodium 132 L Potassium Chloride 91.4 L Carbon Dioxide 23 Anion Gap BUN 11 Creatinine Estimated GFR > 60 BUN/Creatinine Ratio 14 Glucose 182 H Calcium 8.3 L Total Bilirubin 1.80 H AST ALT Alkaline Phosphatase Total Protein 7.9 Albumin 4.0 Albumin/Globulin Ratio 1.0 Amylase Lipase 117 H Urine Color Urine Turbidity Urine pH Ur Specific [place] Urine Protein Urine Glucose (UA) Urine Ketones Urine Blood Urine Nitrite Urine Bilirubin Urine Urobilinogen Ur Leukocyte Esterase Urine WBC (Auto) Urine RBC (Auto) U Epithel Cells (Auto) Urine Mucus Assessment and Plan 1.elevated LFTs 2.abdominal pain 3.acute on chronic pancreatitis 3.ETOH/substance abuse -WBC WNL -H/H 16.2/44.3 -plt 283 -LFTs- trending down (T.cassie 1.80, AST 285, ALT 191, alk phos 143) -lipase trending down (117) -abd CT showed large cystic mass in the pancreatic tail (pseudocyst or possible cystic neoplasm; liver normal) -etiology- likely 2/2 ETOH/substance abuse. Patient has a hx of chronic pancreatitis with pancreatic cyst that was drained ~ 2 yrs ago while in [place] with results showing a potential to turn into cancer in the future per patient report (records unavailable but likely IPMN) -clinically, patient is stable. Reports feeling better with abd pain now improved and nausea resolved. Requesting to eat. -acute hepatitis panel -okay to start on diet -continue to trend labs and supportive care -alcohol/substance abuse cessation discussed/encouraged with patient -patient will need further workup/evaluation with EUS at outpatient -if tolerates PO intake, okay to be d/c per GI standpoint with f/u in clinic for further management as above -will sign off, please call if needed
[2019-02-19 10:47] LABS: Alanine Aminotransferase 191 units/L (7-56)
[2019-02-19] MEDS: THERAGRAN-M Tab PO SCH (13:57)
[2019-02-19] MEDS: NACL 0.9% 1000 ML 1,000 ML IV SCH ×2 (21:56)
[2019-02-19 22:35] LABS: Hepatitis B Surface Antigen Non-Reactive (Negative); Hepatitis C Virus Antibody Non-Reactive (NonReactive)
[2019-02-20] MEDS: THERAGRAN-M Tab PO SCH (10:05)
[2019-02-20] MEDS: SODIUM CHLORIDE FLUSH SYRINGE 10 ML IV SCH (10:05)
[2019-02-20] MEDS: ZESTRIL PO SCH (10:05)
[2019-02-20] MEDS: PERCOCET 5/325 PO PRN (10:29)
[2019-02-20] MEDS: NACL 0.9% 1000 ML 1,000 ML IV SCH (10:30)
[2019-02-20 15:51] VITALS: BP 145/80
--- NOTE | 2019-02-20 17:54 | Progress Note ---
Assessment and Plan - Patient Problems (1) Acute alcoholic pancreatitis Current Visit: Yes Status: Acute Qualifiers: Acute pancreatitis complication: unspecified Qualified Code(s): K85.20 - Alcohol induced acute pancreatitis without necrosis or infection Plan to address problem: Improving Amylase and Lipase Also improving symptomatically (2) Transaminitis Current Visit: Yes Status: Acute Plan to address problem: Sec to ETOH Hepatitis profile negative Counselled about stopping smoking (3) EtOH dependence Current Visit: Yes Status: Chronic Qualifiers: Substance use status: uncomplicated Qualified Code(s): F10.20 - Alcohol dependence, uncomplicated Plan to address problem: On [place] protocol (4) Hyponatremia Current Visit: Yes Status: Acute Plan to address problem: Improved (5) Hypokalemia Current Visit: Yes Status: Acute Plan to address problem: Improved (6) Hypocalcemia Current Visit: Yes Status: Acute Plan to address problem: Initiated on caltrate (7) Hypomagnesemia Current Visit: Yes Status: Acute Plan to address problem: supplemented (8) DVT prophylaxis Current Visit: Yes Status: Acute Plan to address problem: On Lovenox and GI prophylaxis Subjective Date of service: 02/19/19 Principal diagnosis: Acute pancreatitis,Hyponatremia,Hypokalemia Interval history: Patient is a 63-year-old -[place] male who comes into the ER today complaining of abdominal pain that started last night. He states he feels like he has a knot in his stomach. On admission pt noted to be hypertensive and afebrile. No vomiting but does complain of nausea. He had 2 loose stools today. He denies blood in stool. Symptomatically better. No N/V Objective - Constitutional Vitals: Vital Signs - 12hr 02/20/19 02/20/19 02/20/19 07:29 08:35 15:05 Temperature 98.9 F 98.5 F Pulse Rate 79 92 H 84 Respiratory 16 16 Rate Blood Pressure 149/97 145/80 O2 Sat by Pulse 97 98 Oximetry General appearance: Present: no acute distress, well-nourished - EENT Eyes: PERRL, EOM intact ENT: hearing intact, clear oral mucosa Ears: bilateral: normal - Neck Neck: supple, normal ROM - Respiratory Respiratory effort: normal Respiratory: bilateral: CTA - Breasts Breasts: normal - Cardiovascular Rhythm: regular Heart Sounds: Present: S1 & S2. Absent: gallop, rub Extremities: pulses intact, No edema, normal color, Full ROM - Gastrointestinal General gastrointestinal: Present: soft, non-tender, non-distended, normal bowel sounds - Genitourinary Male genitourinary: normal - Integumentary Integumentary: clear, warm, dry - Musculoskeletal Musculoskeletal: 1, strength equal bilaterally - Neurologic Neurologic: moves all extremities - Psychiatric Psychiatric: memory intact, appropriate mood/affect, intact judgment & insight - Labs CBC & Chem 7: 02/18/19 12:02 02/19/19 09:02
[2019-02-20] MEDS ORDERED: LOVENOX SUB-Q ONE (18:01)
[2019-02-20] MEDS ORDERED: MAGNESIUM SULFATE 2GM/50ML 2 GM/50 ML BAG IV ONE (18:02)
--- NOTE | 2019-02-20 18:04 | Discharge Summary ---
Providers - Providers Date of Admission: 02/18/19 21:09 Date of discharge: 02/20/19 Attending physician: ROD WILSON 02/19/19 07:08 Consult to Physician [CONS] Routine Comment: Consulting Provider: ROSA KHALIL Physician Instructions: Reason For Exam: elevated LFTs [facility] Condition: Stable Hospital course: Patient is a 63-year-old -Citizen Of [place] male who comes into the ER today complaining of abdominal pain that started last night. He states he feels like he has a knot in his stomach. On admission pt noted to be hypertensive and afebrile. No vomiting but does complain of nausea. He had 2 loose stools today. He denies blood in stool. Symptomatically better. No N/V (1) Acute alcoholic pancreatitis Current Visit: Yes Status: Acute Qualifiers: Acute pancreatitis complication: unspecified Qualified Code(s): K85.20 - Alcohol induced acute pancreatitis without necrosis or infection Plan to address problem: Improving Amylase and Lipase Also improving symptomatically (2) Transaminitis Current Visit: Yes Status: Acute Plan to address problem: Sec to ETOH Hepatitis profile negative Counselled about stopping smoking (3) EtOH dependence Current Visit: Yes Status: Chronic Qualifiers: Substance use status: uncomplicated Qualified Code(s): F10.20 - Alcohol dependence, uncomplicated Plan to address problem: On [place] protocol (4) Hyponatremia Current Visit: Yes Status: Acute Plan to address problem: Improved (5) Hypokalemia Current Visit: Yes Status: Acute Plan to address problem: Improved (6) Hypocalcemia Current Visit: Yes Status: Acute Plan to address problem: Initiated on caltrate (7) Hypomagnesemia Current Visit: Yes Status: Acute Plan to address problem: supplemented Disposition: DC-01 TO HOME OR SELFCARE - Discharge Diagnoses (1) Acute alcoholic pancreatitis Status: Acute Qualifiers: Acute pancreatitis complication: unspecified Qualified Code(s): K85.20 - Alcohol induced acute pancreatitis without necrosis or infection (2) Transaminitis Status: Acute (3) EtOH dependence Status: Chronic Qualifiers: Substance use status: uncomplicated Qualified Code(s): F10.20 - Alcohol dependence, uncomplicated (4) Hyponatremia Status: Acute (5) Hypokalemia Status: Acute (6) Hypocalcemia Status: Acute (7) Hypomagnesemia Status: Acute (8) DVT prophylaxis Status: Acute Core Measure Documentation - Palliative Care Palliative Care/ Comfort Measures: Not Applicable - Core Measures Any of the following diagnoses?: none Exam - Constitutional Vitals: Temp Pulse Resp BP Pulse Ox 98.5 F 84 16 145/80 98 02/20/19 15:05 02/20/19 15:05 02/20/19 15:05 02/20/19 15:05 02/20/19 15:05 General appearance: Present: no acute distress, well-nourished - EENT Eyes: Present: PERRL ENT: hearing intact, clear oral mucosa - Neck Neck: Present: supple, normal ROM - Respiratory Respiratory effort: normal Respiratory: bilateral: CTA - Cardiovascular Heart rate: 78 Rhythm: regular Heart Sounds: Present: S1 & S2. Absent: rub, click - Extremities Extremities: no ischemia, pulses intact, pulses symmetrical, No edema Peripheral Pulses: within normal limits - Abdominal General gastrointestinal: Present: soft, non-tender, non-distended, normal bowel sounds Male genitourinary: Present: normal - Rectal Rectal Exam: deferred - Integumentary Integumentary: Present: clear, warm, dry - Musculoskeletal Musculoskeletal: gait normal, strength equal bilaterally - Psychiatric Psychiatric: appropriate mood/affect, intact judgment & insight - Neurologic Neurologic: CNII-XII intact, moves all extremities - Allied Health Allied health notes reviewed: nursing, case management Plan Activity: no restrictions Diet: low fat, low cholesterol, low salt Follow up with: JOHN BARR MD [Primary Care Provider] - 3-5 Days
[2019-02-20] MEDS ORDERED: CALTRATE PLUS PO SCH (22:00)
== END 2019-02-20 19:07 | disposition home or self-care (01) | DRG 439 ==
LOC: ED 11:35 → 4A 21:09
PROVIDERS: ADMIT Internal Medicine; ATTEND Internal Medicine
DX: K85.20 Alcohol induced acute pancreatitis without necrosis or infection (principal); E87.1 Hypo-osmolality and hyponatremia; K86.0 Alcohol-induced chronic pancreatitis; R74.0 Nonspecific elevation of levels of transaminase and lactic acid dehydrogenase [LDH]; F10.20 Alcohol dependence, uncomplicated; E87.6 Hypokalemia; I10 Essential (primary) hypertension; E83.42 Hypomagnesemia; E83.51 Hypocalcemia; Z91.013 Allergy to seafood; Z86.73 Personal history of transient ischemic attack (TIA), and cerebral infarction without residual deficits; Z83.3 Family history of diabetes mellitus; Z82.3 Family history of stroke; Z82.49 Family history of ischemic heart disease and other diseases of the circulatory system
CPT/HCPCS: 36415; 74177; 80053; 80074; 81001; 82150; 83690; 85025; 93005; 93010; 99406; G0378; J0360; J2270; J2405; J3411; J3475; J7030; Q9967

== ENCOUNTER 2019-03-09 19:48 | Emergency (ER) | payer SELFPAY ==
[2019-03-09] MEDS ORDERED: SUBLIMAZE IV ONE ×2 (20:16→21:07)
[2019-03-09] MEDS ORDERED: ZOFRAN IV ONE (20:16)
[2019-03-09] MEDS ORDERED: NACL 0.9% 1000 ML 1,000 ML IV ONE (20:16)
--- NOTE | 2019-03-09 20:22 | Emergency Department Report ---
HPI - General Chief Complaint: Abdominal Pain Time Seen by Provider: 03/09/19 20:06 - HPI HPI: Room 5 The patient is a 63-year-old male presented with a chief complaint of abdominal pain. Patient states the past 3-4 days is approximately abdominal pain and swelling. Patient describes the pain as sharp and hard in nature. Patient states the pain is constant but worsens with movement. Patient denies nausea or vomiting. Patient denies history of fever. Patient was recently discharged from the hospital for pancreatitis. Patient gets his pain score of 10/10. Patient states this been a swelling in his midepigastric region since he was discharged from the hospital. Location: [See above] Duration: [See above] Quality: [See above] Severity: [See above] Modifying factors: [see above] Context: [see above] Mode of transportation: [not driving] ED Past Medical Hx - Past Medical History Previous Medical History?: Yes Hx Hypertension: Yes Hx CVA: Yes (No deficits) Additional medical history: Pancreatitis - Surgical History Past Surgical History?: Yes Additional Surgical History: left ankle - Family History Family history: no significant - Social History Smoking Status: Current Every Day Smoker (2/3 pack per day) Substance Use Type: Alcohol (patient states he has not had alcohol since 02/20/2019), Marijuana - Medications Home Medications: Home Medications Medication Instructions Recorded Confirmed Last Taken Type Aspirin 325 mg PO DAILY 01/11/18 01/11/18 Unknown History Folic Acid [Folvite] 1 mg PO DAILY 01/11/18 01/11/18 Unknown History Latanoprost [Xalatan] 2.5 ml OU DAILY 01/11/18 01/11/18 Unknown History Lisinopril [Zestril] 10 mg PO DAILY 01/11/18 01/11/18 Unknown History Brimonidine Tartrate [Brimonidine 1 drop OU BID 30 Days #1 bottle 02/20/19 Unknown Rx Tartrate 0.2%] Calcium Carb/Vit D3/Minerals 1 each PO BID #60 tablet 02/20/19 Unknown Rx [Caltrate Plus] Carvedilol [Coreg] 12.5 mg PO BID #60 tablet 02/20/19 Unknown Rx Clopidogrel [Plavix] 75 mg PO QDAY 30 Days #30 tablet 02/20/19 Unknown Rx LORazepam [Ativan] 0.5 mg PO Q8H PRN #30 tablet 02/20/19 Unknown Rx Latanoprost 0.005% 1 drop OU QPM #1 bottle 02/20/19 Unknown Rx Lisinopril [Zestril TAB] 20 mg PO QDAY #30 tablet 02/20/19 Unknown Rx Multivitamin Tab W-MINERAL 1 each PO QDAY tablet 02/20/19 Unknown Rx [Multiple Vitamin/Mineral (Theragran M)] Pravastatin [Pravachol] 40 mg PO QHS #30 tablet 02/20/19 Unknown Rx Timolol 0.5% [Timoptic] 1 drops OU DAILY 30 Days #1 bottle 02/20/19 Unknown Rx amLODIPine [Norvasc] 10 mg PO DAILY #30 tablet 02/20/19 Unknown Rx oxyCODONE /ACETAMINOPHEN [Percocet 1 tab PO Q6H PRN tablet 02/20/19 Unknown Rx 5/325 mg] Famotidine [Pepcid] 20 mg PO BID #60 tablet 03/09/19 Unknown Rx HYDROcodone/APAP 5-325 [[place] 1 each PO Q6HR PRN #20 tablet 03/09/19 Unknown Rx 5/325] ED Review of Systems ROS: Stated complaint: ABDOMINAL PAIN X 3DAYS Other details as noted in HPI Constitutional: denies: fever Eyes: denies: eye pain ENT: denies: throat pain Respiratory: no symptoms reported Cardiovascular: denies: chest pain Endocrine: denies: no symptoms reported Gastrointestinal: abdominal pain. denies: nausea, vomiting, diarrhea Genitourinary: denies: dysuria Musculoskeletal: back pain Skin: denies: lesions Neurological: denies: headache Physical Exam - Physical Exam Physical Exam: GENERAL: The patient is well-developed well-nourished line or stretcher not appearing to be in acute distress. [] HEENT: Normocephalic. Atraumatic. Extraocular motions are intact. Patient has moist mucous membranes. NECK: Supple. Trachea midline CHEST/LUNGS: Clear to auscultation. There is no respiratory distress noted. HEART/CARDIOVASCULAR: Regular. There is no tachycardia. There is no gallop rub or murmur. ABDOMEN: Abdomen is soft, with diffuse tenderness to palpation. Mid epigastric swelling which appears easily reducible. Patient has normal bowel sounds. There is no abdominal distention. SKIN: There is no rash. There is no edema. There is no diaphoresis. NEURO: The patient is awake, alert, and oriented. The patient is cooperative. The patient has normal speech MUSCULOSKELETAL: There is no evidence of acute injury. ED Medical Decision Making - Lab Data Result diagrams: 03/09/19 20:00 03/09/19 20:00 Laboratory Tests 03/09/19 03/09/19 03/09/19 20:00 20:00 20:00 WBC 9.7 RBC 4.31 Hgb 13.8 Hct 40.0 MCV 93 MCH 32 MCHC 34 RDW 14.9 Plt Count 433 Lymph % (Auto) 23.9 [place] % (Auto) 5.0 Eos % (Auto) 2.0 Baso % (Auto) 1.1 Lymph # 2.3 [place] # 0.5 Eos # 0.2 Baso # 0.1 Seg Neutrophils % 68.0 Seg Neutrophils # 6.6 Sodium 145 Potassium 4.1 Chloride 102.4 Carbon Dioxide 26 Anion Gap 21 BUN 14 Creatinine 0.9 Estimated GFR > 60 BUN/Creatinine Ratio 16 Glucose 118 H Calcium 9.5 Total Bilirubin 0.30 AST 17 ALT 7 Alkaline Phosphatase 90 Total Creatine Kinase 240 H CK-MB (CK-2) 3.0 CK-MB (CK-2) Rel Index 1.2 Troponin T < 0.010 Total Protein 8.2 Albumin 4.3 Albumin/Globulin Ratio 1.1 Lipase 37 - Radiology Data Radiology results: report reviewed (CT abdomen), image reviewed (CT abdomen) [facility] [address] [place] [address] Cat Scan Report Signed Patient: RANJIT BAKER JR MR#: [id number] : 1955 Acct:[id number] Age/Sex: 63 / M ADM Date: 03/09/19 Loc: ED Attending Dr: Ordering Physician: ENRIQUE SIMPSON MD Date of Service: 03/09/19 Procedure(s): CT abdomen pelvis w con Accession Number(s): [id number] cc: ENRIQUE SIMPSON MD CT ABDOMEN AND PELVIS WITH IV CONTRAST INDICATION: Worsening left-sided abdominal pain. COMPARISON: This exam is compared to 02/18/2019 TECHNIQUE: Axial CT images were obtained through the abdomen and pelvis after 100 mL IV contrast. All CT scans at this location are performed using CT dose reduction for ALARA by means of automated exposure control. FINDINGS -- ABDOMEN: Lung Bases: Basilar atelectasis Liver: Normal. Gallbladder: Normal. Bile Ducts: Increasing intra and nectar hepatic biliary dilatation in the interim. The common bile duct now measures approximately 1.3 cm in diameter.. Pancreas: Mild increase in size of the peripherally enhancing fluid collection near the pancreatic tail that now measures 10.2 x 6.4 cm, previously 9.3 x 6.5 cm.. Spleen: Normal. Adrenals: Normal. Right Kidney and Proximal Ureter: No change. Left Kidney and Proximal Ureter: No change. Stomach and Bowel: No change. No obstruction.. Lymph Nodes: No significant adenopathy. Aorta: No significant abnormality. IVC: Normal. Add itional Findings: Worsening ascites throughout much of the abdomen. Ventral abdominal hernia, fat-containing. FINDINGS -- PELVIS: Urinary Bladder and Distal Ureters: Normal. Reproductive Organs: No acute abnormality. Appendix: Normal. Bowel: No acute abnormality. Free Fluid: Small free pelvic fluid has developed in the interim.. Lymph Nodes: No significant adenopathy. Additional Findings: None. Skeletal System: No acute abnormality. IMPRESSION: 1. Interval increase in size of the large peripherally enhancing fluid collection along the pancreatic tail that now measures about 10.2 x 6.4, previously 9.3 x 6.5 cm. Pancreatic pseudocyst is the most likely consideration. 2. Worsening intrauterine extra hepatic biliary dilatation since the prior exam. No obvious obstructing mass identified within the distal common bile duct. 3. Worsening ascites and anasarca and the interim. 4. Worsening atelectasis. 5. No bowel obstruction. Signer Name: Hal De La Cruz MD Signed: 03/09/2019 10:05 PM Workstation Name: [id number] Transcribed By: Dictated By: Hal De La Cruz MD Electronically Authenticated By: Hal De La Cruz MD Signed Date/Time: 03/09/192204 DD/ 00 TD/TT: - Differential Diagnosis pancreatitis, small bowel obstruction, hernia Critical care attestation.: If time is entered above; I have spent that time in minutes in the direct care of this critically ill patient, excluding procedure time. ED Disposition Clinical Impression: Acute abdominal pain Disposition: DC- TO HOME OR SELFCARE Is pt being admited?: No Does the pt Need Aspirin: No Condition: Stable Instructions: Acute Abdominal Pain (ED) Additional Instructions: Return to the emergency department immediately should you develop worsening symptoms, fever, inability to tolerate food or liquid or any other concerns. Prescriptions: HYDROcodone/APAP 5-325 [[place] 5/325] 1 each PO Q6HR PRN #20 tablet PRN Reason: Pain Famotidine [Pepcid] 20 mg PO BID #60 tablet Referrals: SHAVONNE MENDOZA MD [Staff Physician] - 3-5 Days (Dr. Mendoza is a diagnostic cardiac sonographer. Please follow with him for further evaluation) Time of Disposition: 22:19
[2019-03-09 20:28] LABS: Basophils # (Auto) 0.1 K/mm3 (0.0-0.1); Basophils % (Auto) 1.1 % (0.0-1.8); Eosinophils # (Auto) 0.2 K/mm3 (0.0-0.4); Hemoglobin 13.8 gm/dl (11.8-15.2); Lymphocytes # (Auto) 2.3 K/mm3 (1.2-5.4); Lymphocytes % (Auto) 23.9 % (13.4-35.0); Mean Corpuscular HGB Conc 34 % (32-34); Mean Corpuscular Volume 93 fl (84-94); Monocytes # (Auto) 0.5 K/mm3 (0.0-0.8); Platelet Count 433 K/mm3 (140-440); Red Blood Count 4.31 M/mm3 (3.65-5.03); Red Cell Distribution Width 14.9 % (13.2-15.2)
[2019-03-09 20:45] LABS: Alanine Aminotransferase 7 units/L (7-56); Albumin 4.3 g/dL (3.9-5); BUN/Creatinine Ratio 16; Blood Urea Nitrogen 14 mg/dL (9-20); Calcium 9.5 mg/dL (8.4-10.2); Hemolysis Index 4
--- NOTE | 2019-03-09 22:10 | Cat Scan Report ---
CT ABDOMEN AND PELVIS WITH IV CONTRAST INDICATION: Worsening left-sided abdominal pain. COMPARISON: This exam is compared to 02/18/2019 TECHNIQUE: Axial CT images were obtained through the abdomen and pelvis after 100 mL IV contrast. All CT scans a t this location are performed using CT dose reduction for ALARA by means of automated exposure contro l. FINDINGS -- ABDOMEN: Lung Bases: Basilar atelectasis Liver: Normal. Gallbladder: Normal. Bile Ducts: Increasing intra and nectar hepatic biliary dilatation in the inter im. The common bile duct now measures approximately 1.3 cm in diameter.. Pancreas: Mild increase in size of the peripherally enhancing fluid collection near the pancreatic ta il that now measures 10.2 x 6.4 cm, previously 9.3 x 6.5 cm.. Spleen: Normal. Adrenals: Normal. Right Kidney and Proximal Ureter: No change. Left Kidney and Proximal Ureter: No change. Stomach and Bowel: No change. No obstruction.. Lymph Nodes: No significant adenopathy. Aorta: No significant abnormality. IVC: Normal. Additional Findings: Worsening ascites throughout much of the abdomen. Ventral abdominal hernia, fat- containing. FINDINGS -- PELVIS: Urinary Bladder and Distal Ureters: Normal. Reproductive Organs: No acute abnormality. Appendix: Normal. Bowel: No acute abnormality. Free Fluid: Small free pelvic fluid has developed in the interim.. Lymph Nodes: No significant adenopathy. Additional Findings: None. Skeletal System: No acute abnormality. IMPRESSION: 1. Interval increase in size of the large peripherally enhancing fluid collection along the pancreati c tail that now measures about 10.2 x 6.4, previously 9.3 x 6.5 cm. Pancreatic pseudocyst is the most likely consideration. 2. Worsening intrauterine extra hepatic biliary dilatation since the prior exam. No obvious obstructi ng mass identified within the distal common bile duct. 3. Worsening ascites and anasarca and the interim. 4. Worsening atelectasis. 5. No bowel obstruction. Signer Name: Hal De La Cruz MD Signed: 03/09/2019 10:05 PM Workstation Name: [id number]
[2019-03-09 22:49] LABS: Bilirubin,Urine NEG (Negative); Blood,Urine SM (Negative); Color,Urine Yellow (Yellow); Mucus,Urine FEW /HPF; Protein,Urine <15 mg/dL mg/dL (Negative); Urobilinogen,Urine < 2.0 mg/dL (<2.0)
[2019-03-09 23:16] VITALS: BP 135/68
== END 2019-03-09 23:00 | disposition home or self-care (01) ==
LOC: ED 19:48
DX: R10.13 Epigastric pain (principal); I10 Essential (primary) hypertension; F17.210 Nicotine dependence, cigarettes, uncomplicated; F12.90 Cannabis use, unspecified, uncomplicated; Z86.73 Personal history of transient ischemic attack (TIA), and cerebral infarction without residual deficits; Z79.899 Other long term (current) drug therapy; Z79.82 Long term (current) use of aspirin; Z91.013 Allergy to seafood
CPT/HCPCS: 36415; 74177; 80053; 81001; 82550; 82553; 83690; 84484; 85025; 87086; 93005; 93010; 96374; 96375; 96376; 99284; J2405; J3010; J7030; 96361; Q9967